=== PATIENT | female | born 1995 | race African-American/Black ===

== ENCOUNTER 2024-06-30 06:14 | Emergency (ER) | payer SELFPAY ==
--- NOTE | ~2024-06-30 | XR_ITS ---
EXAMINATION: XR chest 1V portable DATE: 06/30/2024 06:48 INDICATION: Chest pain. TECHNIQUE: A single frontal view of the chest was obtained. COMPARISON: Chest single view 12/13/2022 FINDINGS: There is no pneumonia, pleural effusion, or pneumothorax. The heart size is normal. IMPRESSION: 1. No acute cardiopulmonary disease. Reviewed, dictated and finalized at location A. PLIFIER MECHANIC
--- NOTE | 2024-06-30 06:15 | ECG_ITS ---
Test Date: 2024-06-30 06:23:18 Measurements Intervals [place] Rate: 70 P: 39 ME: 183 QRS: 59 QRSD: 89 T: 41 QT: 367 QTc: 397 Interpretive Statements SINUS RHYTHM SEPTAL MYOCARDIAL INFARCTION , PROBABLY OLD [40+ ms Q WAVE IN V1/V2] No previous ECG available for comparison Electronically Signed On 07-01-2024 14:51:06 HOG WORKER by Juan Gu M.D.
[2024-06-30 06:19] VITALS: BP 127/100; RESP 19; O2SAT 98
[2024-06-30 06:30] LABS: Basophils Absolute Auto 0.1 K/mm3 (0.0-0.1); Basophils Percent Auto 0.9 % (0.2-1.2); Eosinophils Absolute Auto 0.1 K/mm3 (0-0.3); Eosinophils Percent Auto 1.2 % (0-4.4); Hematocrit 32.2 % (37.0-47.0); Hemoglobin 9.7 g/dL (12.0-15.0); Immature Granulocyte Absolute 0.02 K/mm3 (0.00-0.031); Immature Granulocyte Percent A 0.3 % (0-0.5); Lymphocytes Absolute Auto 2.54 K/mm3 (0.9-3.2); Lymphocytes Percent Auto 36.5 % (18.3-44.2); Mean Corpuscular HGB Conc 30.1 g/dl (32-36); Mean Corpuscular Hemoglobin 22.1 pg (26-34); Mean Corpuscular Volume 73.3 fl (80-100); Mean Platelet Volume 9.1 fl (7.4-10.4); Monocytes Absolute Auto 0.7 K/mm3 (0.1-0.6); Monocytes Percent Auto 10.4 % (2.6-8.5); Neutrophils Absolute Auto 3.5 K/mm3 (1.3-6.7); Neutrophils Percent Auto 50.7 % (45.5-73.1); Platelet Count Result 226 k/mm3 (150-375); Red Blood Count 4.39 M/mm3 (4.2-5.4)
[2024-06-30 06:44] LABS: Alanine Aminotransferase 12 U/L (6-35); Albumin Level 4.2 g/dL (3.5-5.1); Alkaline Phosphatase 64 U/L (38-126); Anion Gap 5 mmol/L (4-12); Aspartate Amino Transferase 20 U/L (14-36); Bilirubin,Total 0.7 mg/dL (0.2-1.3); Blood Urea Nitrogen 8 mg/dL (7-17); Carbon Dioxide 27 mmol/L (22-30); Chloride 104 mmol/L (98-107); Estimated CRCL calculation 117 ml/min; Estimated Glomerular Filt Rate > 60; Glucose 95 mg/dL (65-110); Lipase 51 U/L (23-300); Potassium 3.5 mmol/L (3.4-5.0); Sodium 136 mmol/L (137-145)
[2024-06-30 06:48] VITALS: O2SAT 100
[2024-06-30 06:56] LABS: Troponin I < 0.012 ng/mL (0.000-0.034)
[2024-06-30 06:59] LABS: Anisocytosis 1+; Ovalocytes 1+; Platelet Estimate Adequate (Adequate); Schistocytes None Seen
[2024-06-30 07:17] VITALS: BP 132/89; PULSE 67; RESP 18; O2SAT 100
[2024-06-30 07:19] VITALS: O2SAT 100
[2024-06-30] MEDS: FAMOTIDINE 20 MG/2 ML VIAL IV PUSH (07:39)
[2024-06-30] MEDS: MAG HYDROX/AL HYDROX/SIMETH 30 ML UDC PO (07:39)
--- NOTE | 2024-06-30 07:47 | ED_ITS ---
HPI - Chest Pain General Chief Complaint: Chest Pain Stated Complaint: chest pain Time Seen by Provider: 06/30/24 07:03 History of Present Illness HPI narrative: 29-year-old female presenting to the emergency department for evaluation of epigastric chest discomfort she states feels similar to gas. 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 At approximately 3 in the morning she had a sensation of epigastric and midsternal chest discomfort. She described tightness in chest. Denies any difficulty breathing, fever, chills, nausea, vomiting, back pain, abdominal pain, GI or symptoms. Was otherwise in her normal state of health. Has not had anything like this happen or previously. She states it feels like it could be gas. Pain is slowly subsided but not completely gone during my initial assessment. No cardiac history, no history of hypertension or any cardiac medications. Denies any chance of . Was otherwise in her normal state of health. Denies any recent injuries, trauma, direct impact, fever, chills or any other sick symptoms. Related Data Allergies Allergy/AdvReac Type Severity Reaction Status Date / Time Penicillins Allergy Unknown Rash Verified 06/30/24 06:51 Review of Systems 2 Review of Systems: As reviewed above in HPI Exam 2 Narrative: GENERAL: [Well-appearing, well-nourished, and in no acute distress.] HEAD: [Normocephalic, atraumatic.] EYES: [PERRLA and EOMI.] ENT: Nares clear, no rhinorrhea or epistaxis. Mucous membranes moist. NECK: Supple. CHEST: [Clear to auscultation. No respiratory distress.] HEART: [Regular rate and rhythm]. No murmur heard. [Normal peripheral pulses.] ABDOMEN: [Soft, nondistended], [nontender], [No rigidity or guarding] EXTREMITIES: Normal range of motion. [No edema.] SKIN: Warm, dry, no rash. NEURO: [No focal deficits]. Alert and oriented [x3.] PSYCH: [Normal mood and affect.] Course Vital Signs Vital signs: Vital Signs Respiratory Rate 19 06/30/24 06:19 Blood Pressure 127/100 H 06/30/24 06:19 Pulse Oximetry 98 06/30/24 06:19 Oxygen Delivery Room Air 06/30/24 06:19 Pulse Rate 67 06/30/24 07:17 Respiratory Rate 18 06/30/24 07:17 Blood Pressure 132/89 06/30/24 07:17 Pulse Oximetry 100 06/30/24 07:19 Oxygen Delivery Room Air 06/30/24 07:19 MDM - Chest Pain MDM Narrative Medical decision making narrative: 29-year-old otherwise healthy and well-appearing female presenting to the emergency room for evaluation of epigastric and retrosternal chest discomfort and chest tightness. She has clear breath sounds throughout both lung yi, no reproducible tenderness with palpation, strong symmetric pulse a shins in both arms and legs, warm extremities. Vital signs are very reassuring without any blood pressure concerns, no tachycardia, fever, hypoxia. Patient has no cardiac risk factors and states that symptoms could feel similar to gas. She was treated conservatively with Pepcid and Maalox and had a cardiac workup here in the emergency department cleaning x-ray, troponin, EKG and electrolytes. No leukocytosis, anemia of 9.7 with no known baseline. Normal platelets. Electrolytes within normal limits, normal renal and hepatic function panel, normal glucose, negative lipase. Troponin is undetectable. I reviewed the chest x-ray and I do not see any pneumonia, pleural effusion or pneumothorax. Radiology read confirms no acute cardiopulmonary process. EKG is nonischemic in nature without any acute ST segment findings or changes. Patient had improvement with symptom control and was stable for discharge home at this time with return precautions and PCP follow-up. Differential Diagnosis Differential diagnosis: Likely pneumothorax, stable angina, atypical chest pain, st elevation myocardial infarction, costochondritis, chest pain, biliary colic and other Medical Records Data Attestation: I reviewed the patient's medical records. Lab Data Attestation: I reviewed the patient's lab results. 06/30/24 06:25 06/30/24 06:26 Labs: Lab Results 06/30/24 06/30/24 Range/Units 06:25 06:26 WBC 7.0 (4.5-10.0) K/mm3 RBC 4.39 (4.2-5.4) M/mm3 Hgb 9.7 L (12.0-15.0) g/dL Hct 32.2 L (37.0-47.0) % MCV 73.3 L (80-100) fl MCH 22.1 L (26-34) pg MCHC 30.1 L (32-36) g/dl RDW 16.0 H (11.5-14.5) % Plt Count 226 (150-375) k/mm3 MPV 9.1 (7.4-10.4) fl Immature Gran % (Auto) 0.3 (0-0.5) % Neut % (Auto) 50.7 (45.5-73.1) % Lymph % (Auto) 36.5 (18.3-44.2) % [place] % (Auto) 10.4 H (2.6-8.5) % Eos % (Auto) 1.2 (0-4.4) % Baso % (Auto) 0.9 (0.2-1.2) % Lymph # (Auto) 2.54 (0.9-3.2) K/mm3 [place] # (Auto) 0.7 H (0.1-0.6) K/mm3 Eos # (Auto) 0.1 (0-0.3) K/mm3 Baso # (Auto) 0.1 (0.0-0.1) K/mm3 Abs Immat Gran (auto) 0.02 (0.00-0.031) K/mm3 Absolute Neuts (auto) 3.5 (1.3-6.7) K/mm3 Absolute Nucleated RBC 0.000 (0.0-0.012) K/mm3 Nucleated RBC % 0.0 (0.0-0.2) % Platelet Estimate Adequate (Adequate) Anisocytosis 1+ Ovalocytes 1+ Schistocytes None seen PT Pending INR Pending APTT Pending Sodium 136 L (137-145) mmol/L Potassium 3.5 (3.4-5.0) mmol/L Chloride 104 (98-107) mmol/L Carbon Dioxide 27 (22-30) mmol/L Anion Gap 5 (4-12) mmol/L BUN 8 (7-17) mg/dL Creatinine 0.70 (0.7-1.0) mg/dL Estim Creat Clear Calc 117 ml/min Estimated GFR > 60 (59 - ) Glucose 95 (65-110) mg/dL Calcium 9.0 (8.4-10.2) mg/dL Total Bilirubin 0.7 (0.2-1.3) mg/dL AST 20 (14-36) U/L ALT 12 (6-35) U/L Alkaline Phosphatase 64 (38-126) U/L Troponin I < 0.012 (0.000-0.034) ng/mL Total Protein 7.0 (6.3-8.2) g/dL Albumin 4.2 (3.5-5.1) g/dL Lipase 51 (23-300) U/L Imaging Data Attestation: I personally reviewed and interpreted this imaging study as follows: My impression: I reviewed the chest x-ray and I do not see any pneumonia, pleural effusion or pneumothorax. Impressions Chest X-Ray 06/30/24 06:49 IMPRESSION: 1. No acute cardiopulmonary disease. ECG Data EKG #1: Attestation: I personally reviewed and interpreted this ECG as follows: ECG completion date: 06/30/24 ECG completion time: :23 Prior ECG tracings: not available for review Interpretation: No ST segment elevations, depressions or inversions. Good R-wave progression lateral precordial leads. No ectopy, regular rate rhythm an axis, QTC 397, QRS 89, TN interval 183 all within normal limits. No previous EKG for comparison. Overall normal sinus rhythm. Discharge Plan Discharge Clinical Impression: Atypical chest pain Patient Disposition: Home, Self-Care Condition: Stable Instructions: Antibiotic Form, Chest Pain (ED), Gastritis (DC) Additional Instructions: Your cardiac workup was reassuring. Follow-up with your regular doctor on outpatient basis. You can take Tylenol, ibuprofen or any other [id number] remedies for your symptoms. Could potentially be GI tract related such as gastritis or esophageal spasm. If you have any persistent symptoms or any new or worsening concerns please return to the ED otherwise follow-up with your regular doctor outpatient. Patient Language: Libyan Follow-up/Referrals: PHYSICIAN,SPONGE PRESS OPERATOR [Non-Staff] - Time of Disposition: 07:29 Quality HEART score for chest pain patients History: slightly suspicious ECG: normal Age: < or = to 45 years Risk factors: no risk factors known Troponin: < or = to 1x normal limit Heart score: 0
--- OUTSIDE RECORDS SUMMARY | 2024-07-07 08:51 | XMS_ITS | Encounter Summary ---
Author Organization [facility] Address [facility]. [place], [place] [id number] [place] [id number] Care Team Providers Care Freight Receiver Name Role Phone Unavailable Primary Care Provider Unavailabl e Encounter Details Date Type Department Care Team (Latest Contact Info) Description 12/22/2021 Travel Social History Tobacco Use Types Packs/Day Years Used Date Smoking Tobacco: Never Smokeless Tobacco: Never Alcohol Use Standard Drinks/Week Comments No 0 (1 standard drink = 0.6 oz pur e alcohol) Comments No Sex and Gender Information Value Date Recorded Sex Assigned at Not on file Legal Sex Female 5:47 PM CDT Gender Identity Not on file Sexual Orientation Not on file COVID-19 Exposure Response Date Recorded In the last 10 days, have yo u been in contact with someone who was confirmed or suspected to have Coronavirus/COVID-19? No / Unsure 12/22/2021 9:07 PM CDT documented as of this encounter Functional Status * RETIRED Are you deaf or do you have serious difficulty hearing Answer Date of Assessment Author Status No 03/12/2020 8:50 AM CDT Activ e * RETIRED Are you blind or do you have serious difficulty seeing, even when wearing glasses? Answer Date of Assessment Author Status No 03/12/2020 8:50 AM CDT Activ e * Do you have serious difficulty walking or climbing stairs? Answer Date of Assessment Author Status No 03/12/2020 8:50 AM CDT Mariah Gonzalez RN Active * Do you have difficulty dressing or bathing? Answer Date of Assessment Author Status No 03/12/2020 8:50 AM CDT Mariah Gonzalez RN Active * Because of a physical, mental, or emotional condition, do you have difficulty doing errands alone such as visiting a doctor's office or shopping? Answer Date of Assessment Author Status No 03/12/2020 8:50 AM Mariah Garrido RN Active documented as of this encounter Mental Status * Because of a physical, mental, or emotional condition, do you have serious difficulty concentrating, remembering, or making decisions? Answer Entry Date Author Status No 03/12/2020 8:50 AM Mariah Garrido RN Active documented in this encounter Plan of Treatment Not on file documented as of this encounter Visit Diagnoses Not on filedocumented in this encounter
--- OUTSIDE RECORDS SUMMARY | 2024-07-07 08:51 | XMS_ITS | Clinical Summary ---
Author Organization [facility] Address [facility] [place] [address] [place] [address] Care Team Providers Care Almond Sorter Name Role Phone Unavailable Primary Care Provider Unavailabl e Allergies Active Allergy Reactions Criticality Noted Date Comments Penicillins Swelling 02/27/2018 Medications oxyCODONE-aceta minophen (PERCOCET) 5-325 MG tabletIndicatio ns:Acute Pain < 7 Day Supply,surgery Take 1 tablet by mouth every 6 (six) hours as needed. Indications: Acute Pain < 7 Day Supply, surgery 20 tablet 0 Active ferrous sulfate EC 325 (65 Fe) MG tablet Take 1 tablet (325 mg total) by mouth 2 (two) times daily with meals. 1 tablet/day with 4 ounces of orange juice, if does not upset stomach or constipate take this twice/day 60 tablet 0 Active Family History Medical History Relation Comments Diabetes Mother Heart Disease Mother Relation Status Comments Brother Alive Daughter Alive Father Alive Maternal Grandfather Maternal Grandmother Alive Mother Alive Paternal Grandfather Alive Paternal Grandmother Sister Alive Son Alive Social History Tobacco Use Types Packs/Day Years Used Date Smoking Tobacco: Never Smokeless Tobacco: Never Alcohol Use Standard Drinks/Week Comments No 0 (1 standard drink = 0.6 oz pur e alcohol) Comments No Sex and Gender Information Value Date Recorded Sex Assigned at Not on file Legal Sex Female 5:47 PM CDT Gender Identity Not on file Sexual Orientation Not on file Last Filed Vital Signs Vital Sign Reading Time Taken Comments Blood Pressure 123/88 12/22/2021 9:53 PM CDT Pulse 75 12/22/2021 9:19 PM CDT Temperature 36.4 ??C (97.5 ??F) 12/22/2021 9:19 PM CD T Respiratory Rate 16 12/22/2021 9:19 PM CDT Oxygen Saturation 100% 12/22/2021 9:19 PM CDT Inhaled Oxygen Concentration - - Weight 92.4 kg (203 lb 11.3 oz) 12/22/2021 9:19 PM CDT Height 165.1 cm (5' 5 ) 12/22/2021 9:19 PM CDT Body Mass Index 33.9 12/22/2021 9:19 PM CDT Plan of Treatment Health Maintenance Due Date Last Done Comments Cervical Cancer Screening Pa p Smear (Age 21 to 29) Every 3 Years 1995 Cervical Cancer Screening 1995 Annual Physical 1998 Hepatitis C 2013 DTaP, Tdap and Td Vaccines ( 1 - Tdap) 2014 Hepatitis B Vaccines (1 of 3 - 19+ 3-dose series) 2014 COVID-19 Vaccine (2023-2 5 season) 2024 Influenza Adult (#1) 2024 HPV Vaccines Aged Out No longer eligi ble based on patient's age to complete this topic Meningococcal Vaccine Aged Out No audrey eduardo eligible based on patient's age to complete this topic Pneumococcal Vaccine: Pediat rics (0 to 5 Years) and At-Risk Patients (6 to 64 Years) Aged Out No longer eligible b ased on patient's age to complete this topic RSV Immunizations Under 20 Months Aged Out No longer eligible based on patient's age to complete this topic Insurance [facility] Advance Directives * Full Code (Latest Code Status on File) Date Activated Date Inactivated Comments 03/13/2020 7:17 AM 03/14/2020 11:11 PM
--- OUTSIDE RECORDS SUMMARY | 2024-07-07 08:52 | XMS_ITS | Encounter Summary ---
Author Organization [facility] Address [facility] [place] [address] [place] [address] Care Team Providers Care Rewinder Operator Helper Name Role Phone , Tin Mendieta MD Primary Care Provider Unavailable Encounter Details Date Type Department Care Team (Late st Contact Info) Description 05/15/2015 Abstract [facility] [place], [place] [id number] Rashi Rose MD [address] [place], [place] [id number] Social History Tobacco Use Types Packs/Day Years Used Date Smoking Tobacco: Never Assessed Comments Unknown Sex and Gender Information Value Date Recorded Sex Assigned at Not on file Legal Sex Female 5:47 PM CDT Gender Identity Not on file Sexual Orientation Not on file documented as of this encounter Plan of Treatment Not on file documented as of this encounter Procedures Procedure Name Priority Date/Time Associated Diagnosis Comments CBC W/DIFF AUTOMATED Routine 05/16/2015 5:44 AM ANIMATION DIRECTOR SYPHILIS IGG AB STAT 05/15/2015 5:30 AM ANIMATION DIRECTOR URINALYSIS WI REFLEX TO CULTURE STAT 05/15/2015 5:30 AM ANIMATION DIRECTOR TYPE AND CROSSMATCH STAT 05/15/2015 5 :30 AM ANIMATION DIRECTOR URINE BACTERIA CULTURE Routine 05/15/2015 5:30 AM ANIMATION DIRECTOR CBC W/DIFF AUTOMATED STAT 05/15/2015 5:30 AM ANIMATION DIRECTOR documented in this encounter Results * (ABNORMAL) CBC W/DIFF AUTOMATED (05/16/2015 5:44 AM ANIMATION DIRECTOR) [facility] WBC 12.7(H) 4.8 - 10.8 X10'3/uL 05/16/2015 5:54 AM [facility] RBC 3.08(L) 4.20 - 5.40 X10'6/uL 05/16/2015 5:54 AM [facility] HGB 9.3(L) 12.0 - 16.0 g/dL 05/16/2015 5:54 AM [facility] HCT 27.7(L) 38.0 - 48.0 % 05/16/2015 5:54 AM [facility] MCV 89.9 81.0 - 99.0 fL 05/16/2015 5:54 AM [facility] MCH 30.2 27.0 - 31.0 pg 05/16/2015 5:54 AM [facility] MCHC 33.6 32.0 - 36.0 g/dL 05/16/2015 5:54 AM [facility] RDW 12.6 11.5 - 14.5 % 05/16/2015 5:54 AM [facility] PLT 119(L) 130 - 400 X10'3/uL 05/16/2015 5:54 AM [facility] MPV 11.0 9.3 - 12.2 fL 05/16/2015 5:54 AM [facility] DIFFERENTIAL TYPE AUTOMATED 05/16/2015 5:55 AM [facility] NEUTROPHILS % 78.4(H) 43.0 - 65.0 % 05/16/2015 5:55 AM [facility] LYMPHOCYTES % 9.6(L) 20.0 - 46.0 % 05/16/2015 5:55 AM ANIMATION DIRECTOR [facility] MONOCYTES % 10.8 5.0 - 12.0 % 05/16/2015 5:55 AM [facility] EOSINOPHILS 0.5(L) 1.0 - 3.0 % 05/16/2015 5:55 AM ANIMATION DIRECTOR [facility] BASOPHILS 0.2 0.0 - 1.0 % 05/16/2015 5:55 AM ANIMATION DIRECTOR [facility] IMMATURE GRANS % 0.5 0.0 - 1.0 % 05/16/2015 5:55 AM [facility] 05/16/2015 5:44 AM ANIMATION DIRECTOR 05/16/2015 5:45 AM ANIMATION DIRECTOR us Generic Conversion Md [facility] LABORATORY Final R esult Performing Organization Address City/[facility]/ZIP Co de Phone Number [facility] [address] [place] [address], [place] [phone] * CULTURE URINE (05/15/2015 5:30 AM ANIMATION DIRECTOR) SPEC DESCRIPTION URINE CLEAN CATCH 05/15/2015 7:09 AM [facility] SPECIAL REQUESTS NO SPECIAL REQUEST 05/15/2015 7:09 AM [facility] CULTURE RESULT POLYMICROBIAL GROWTH CONSISTENT WITH NORMAL GENITAL GABRIEL. ?? SUSCEPTIBILITIES NOT ROUTINELY PERFORMED. 05/17/2015 7:57 AM [facility] URINE SPECIMEN OBTAINED BY CLEAN CATCH PROCEDURE / Unknown 05/15/2015 5:30 AM ANIMATION DIRECTOR 05/15/2015 7:08 AM ANIMATION DIRECTOR us Generic Conversion Md [facility] MICROBIOLOGY - GENERAL ORDERABLES Final Result Performing Organization Address City/[facility]/ZIP Co de Phone Number [facility] [address] [place] [address], [place] [phone] * Type and Crossmatch (05/15/2015 5:30 AM ANIMATION DIRECTOR) UNITS ORDERED 0 05/15/2015 5:59 AM [facility] ABO/RH O POSITIVE 05/15/2015 7:24 AM [facility] ANTIBODY SCREEN NEGATIVE 7:24 AM [facility] SAMPLE EXPIRATION 05/18/2015 05/15/2015 7:24 AM [facility] 05/15/2015 5:30 AM ANIMATION DIRECTOR 05/15/2015 5:57 AM ANIMATION DIRECTOR us Generic Conversion Md [facility] BLOOD BANK TEST ORDERAB LES Final Result [facility] [address] [place] [address], [place] [phone] * (ABNORMAL) URINALYSIS WI REFLEX TO CULTURE (05/15/2015 5:30 AM ANIMATION DIRECTOR) SOURCE (FLUID) URINE CLEAN CATCH 05/15/2015 5:16 AM [facility] COLOR (U) YELLOW 05/15/2015 6:41 AM [facility] TRANSPARENCY CLEAR 05/15/2015 6:41 AM [facility] SPECIFIC GRAVITY (U) 1.008 1.001 - 1.030 05/15/2015 6:41 AM [facility] U PH 6.0 5.0 - 9.0 05/15/2015 6:41 AM [facility] LEUKOCYTES (U) SMALL(A) NEGATIVE 05/15/2015 6:41 AM [facility] NITRITES NEGATIVE NEGATIVE 05/15/2015 6:41 AM [facility] PROTEIN (U) NEGATIVE <30 MG/DL 05/15/2015 6:41 AM [facility] URINE GLUCOSE NEGATIVE NEGATIVE MG/DL 05/15/2015 6:41 AM [facility] KETONES MG/DL (U) NEGATIVE NEGATIVE MG/DL 05/15/2015 6:41 AM [facility] UROBILINOGEN 4.0(A) NEGATIVE MG/DL 05/15/2015 6:41 AM [facility] BILIRUBIN (U) NEGATIVE NEGATIVE MG/DL 05/15/2015 6:41 AM [facility] BLOOD (U) NEGATIVE NEGATIVE 05/15/2015 6:41 AM [facility] CULTURE & SENSITIVITY INDICATED? SPECIMEN SETUP FOR CULTURE 05/15/2015 6:41 AM [facility] SQUAMOUS EPITHELIALS FEW /LPF 05/15/2015 6:41 AM [facility] MUCUS RARE /LPF 05/15/2015 6:41 AM [facility] WBC/HPF 3 <6 /HPF 05/15/2015 6:41 AM [facility] RBC/HPF 1 <6 /HPF 05/15/2015 6:41 AM [facility] SPERM (U) SPERMATOZOA PRESENT 05/15/2015 6:41 AM [facility] 05/15/2015 5:30 AM ANIMATION DIRECTOR 05/15/2015 5:59 AM ANIMATION DIRECTOR us Generic Conversion Md [facility] URINE ORDERABLES Final Result [facility] [address] [place] [address], * SYPHILIS IGG AB (05/15/2015 5:30 AM ANIMATION DIRECTOR) SYPHILIS IGG AB NON-REACTI VE NON-REACTI VE 05/18/2015 11:08 AM ANIMATION DIRECTOR [facility] Comment: TESTING PERFORMED AT [facility] [address] [place] [address] SERUM SPECIMEN / Unknown 05/15/2015 5:30 AM ANIMATION DIRECTOR 05/15/2015 6:01 AM ANIMATION DIRECTOR us Generic Conversion Md [facility] LABORATORY Final R esult [facility] [address] [place] [address], [place] [phone] * (ABNORMAL) CBC W/DIFF AUTOMATED (05/15/2015 5:30 AM ANIMATION DIRECTOR) WBC 10.3 4.8 - 10.8 X10'3/uL 05/15/2015 6:01 AM [facility] RBC 4.19(L) 4.20 - 5.40 X10'6/uL 05/15/2015 6:01 AM [facility] HGB 12.9 12.0 - 16.0 g/dL 05/15/2015 6:01 AM [facility] HCT 37.1(L) 38.0 - 48.0 % 05/15/2015 6:01 AM [facility] MCV 88.5 81.0 - 99.0 fL 05/15/2015 6:01 AM [facility] MCH 30.8 27.0 - 31.0 pg 05/15/2015 6:01 AM [facility] MCHC 34.8 32.0 - 36.0 g/dL 05/15/2015 6:01 AM [facility] RDW 12.4 11.5 - 14.5 % 05/15/2015 6:01 AM [facility] PLT 152 130 - 400 X10'3/uL 05/15/2015 6:01 AM [facility] MPV 11.7 9.3 - 12.2 fL 05/15/2015 6:01 AM [facility] DIFFERENTIAL TYPE AUTOMATED 05/15/2015 6:01 AM [facility] NEUTROPHILS % 66.3(H) 43.0 - 65.0 % 05/15/2015 6:01 AM [facility] LYMPHOCYTES % 20.4 20.0 - 46.0 % 05/15/2015 6:01 AM [facility] MONOCYTES % 10.7 5.0 - 12.0 % 05/15/2015 6:01 AM [facility] EOSINOPHILS 2.0 1.0 - 3.0 % 05/15/2015 6:01 AM [facility] BASOPHILS 0.3 0.0 - 1.0 % 05/15/2015 6:01 AM [facility] IMMATURE GRANS % 0.3 0.0 - 1.0 % 05/15/2015 6:01 AM [facility] 05/15/2015 5:30 AM ANIMATION DIRECTOR 05/15/2015 5:51 AM ANIMATION DIRECTOR us Generic Anam Dahl MD LABORATORY Final R esult [facility] [address] [place] [address], documented in this encounter Visit Diagnoses Diagnosis Maternal care for excessive growth in third trimester (HHS/HCC) Excessive growth affecting management of mother, antepartum documented in this encounter Care Teams Rewinder Operator Helper Relationship Specialty Start Date End Date Tin Dahl MD PCP - General 05/15/15 documented as of this encounter
--- OUTSIDE RECORDS SUMMARY | 2024-07-07 08:52 | XMS_ITS | Encounter Summary ---
Author Organization [facility] Address [facility]6 [facility]. [place], [place] [id number] [place] [id number] Care Team Providers Care Procurement Analyst Name Role Phone None, Provider Primary Care Provider Clyde ardon Encounter Details Date Type Department Care Team (Latest Contact Info) Description 03/12/2020 Travel Social History Tobacco Use Types Packs/Day [...] Exposure Response Date Recorded In the last month, have you been in contact with someone who was confirmed or suspected to have Coronavirus / COVID-19? No / Unsure 03/12/2020 8:25 AM CDT documented as of this encounter Functional Status * Question Answer Date of Assessment Author Status Do you have serious difficulty walking or climbing stairs? No 03/12/2020 8:50 AM CDT Mariah Gonzalez RN Ac tive * Question Answer Date of Assessment Author Status Do you have difficulty dressing or bathing? No 03/12/2020 8:50 AM CDT Mariah Gonzalez R N Active Because of a physical, mental, or emotional condition, do you have difficulty doing errands alone such as visiting a doctor's office or shopping? No 03/12/2020 8:50 AM CDT Mariah Gonzalez RN Ac tive * RETIRED Are you deaf or do you have serious difficulty hearing Answer Date of Assessment Author Status No 03/12/2020 8:50 AM CDT Activ e * RETIRED Are you blind or do you have serious difficulty seeing, even when wearing glasses? Answer Date of Assessment Author Status No 03/12/2020 8:50 AM ELMOT Activ e * Do you have serious difficulty walking or climbing stairs? Answer Date of Assessment Author Status No 03/12/2020 8:50 AM Mariah Garrido RN Active * Do you have difficulty dressing or bathing? Answer Date of Assessment Author Status No 03/12/2020 8:50 AM Mariah Garrido RN Active * Because of a physical, mental, or emotional condition, do you have difficulty doing errands alone such as visiting a doctor's office or shopping? Answer Date of Assessment Author Status No 03/12/2020 8:50 AM Mariah Garriod RN Active documented as of this encounter Mental Status * Question Answer Entry Date Author Status Because of a physical, mental, or emotional condition, do you have serious difficulty concentrating, remembering, or making decisions? No 03/12/2020 8:50 AM Mariah Garrido R N Active * Because of a physical, mental, or emotional condition, do you have serious difficulty concentrating, remembering, or making decisions? Answer Entry Date Author Status No 03/12/2020 8:50 AM Mariah Garrido RN Active documented in this encounter Plan of Treatment Not on file documented as of this encounter Visit Diagnoses Not on filedocumented in this encounter Care Teams Procurement Analyst Relationship Specialty Start Date End Date None, Provider, PCP - General 07/16/18 03/13/20 documented as of this encounter
--- OUTSIDE RECORDS SUMMARY | 2024-07-07 08:52 | XMS_ITS | Encounter Summary ---
Author Organization [facility] Address [facility]6 [facility] [place] [address] [place] [address] Care Team Providers Care Supervisor Sample Name Role Phone None, Provider Primary Care Provider Clyde ardon Encounter Details Date Type Department Care Team (Late st Contact Info) Description 03/11/2020 Orders Only [facility] [address] [place], [place] [id number] Elaine Rader MD [address] [place], [place] [id number] Social History Tobacco Use Types Packs/Day Years [...] documented as of this encounter Visit Diagnoses Diagnosis Preop testing- Primary Preoperative examination, unspecified documented in this encounter Care Teams Supervisor Sample Relationship Specialty Start Date End Date None, ProviderMD PCP - General 07/16/18 03/13/20 documented as of this encounter
--- OUTSIDE RECORDS SUMMARY | 2024-07-07 08:52 | XMS_ITS | Encounter Summary ---
Author Organization [facility] Address [facility]6 [facility] [place], [place] [id number] [place] [address] Care Team Providers Care Plasterer Helper Name Role Phone None, Provider Primary Care Provider Unavaila ble Reason for Visit * Reason Comments (Fatigue) FEELING WEAK Encounter Details Date Type Department Care Team (Latest Contact Info) Description 07/16/2018 5:35 PM DIRECTOR SHIP - 07/16/2018 7:52 PM DIRECTOR SHIP Hospital Encounter [facility] Labor & [place] [address] Cj Leggett MD [address] [place] [address] (Fatigue) (FEELING WEAK) Discharge Disposition: Home or Self Care (Routine Discharge) Social History Tobacco Use Types Packs/Day Years Used Date Smoking Tobacco: Never Smokeless Tobacco: Never Alcohol Use Standard Drinks/Week Comments No 0 (1 standard drink = 0.6 oz pur e alcohol) Comments Yes Sex and Gender Information Value Date Recorded Sex Assigned at Not on file Legal Sex Female 5:47 PM CDT Gender Identity Not on file Sexual Orientation Not on file documented as of this encounter Last Filed Vital Signs Vital Sign Reading Time Taken Comments Blood Pressure 127/80 07/16/2018 6:35 PM DIRECTOR SHIP Pulse 95 07/16/2018 7:18 PM DIRECTOR SHIP Temperature - - Respiratory Rate - - Oxygen Saturation - - Inhaled Oxygen Concentration - - Weight 95.3 kg (210 lb) 07/16/2018 7:34 PM DIRECTOR SHIP Height 165.1 cm (5' 5 ) 07/16/2018 7:34 PM DIRECTOR SHIP Body Mass Index 34.95 07/16/2018 7:34 PM DIRECTOR SHIP documented in this encounter Plan of Treatment Not on file documented as of this encounter Procedures Procedure Name Priority Date/Time Associated Diagnosis Comments COMPREHENSIVE METABOLIC PANEL STAT 07/16/2018 7:06 PM DIRECTOR SHIP Weakness DRUG SCREEN RAPID Routine 07/16/2018 6:4 5 PM DIRECTOR SHIP Weakness URINALYSIS Routine 07/16/2018 6:45 PM DIRECTOR SHIP Weakness CBC W/DIFF AUTOMATED STAT 07/16/2018 6:45 PM DIRECTOR SHIP Weakness documented in this encounter Results * (ABNORMAL) COMPREHENSIVE METABOLIC PANEL (07/16/2018 7:06 PM DIRECTOR SHIP) GLUCOSE 85 70 - 99 MG/DL 07/16/2018 7:30 PM [facility] BUN 4(L) 7 - 18 MG/DL 07/16/2018 7:30 PM [facility] CREATININE S/P/B 0.50(L) 0.55 - 1.02 MG/DL 07/16/2018 7:30 PM [facility] SODIUM S/P/B 139 136 - 145 MMOL/L 07/16/2018 7:30 PM [facility] POTASSIUM S/P/B 3.7 3.5 - 5.1 MMOL/L 07/16/2018 7:30 PM [facility] CHLORIDE S/P/B 108 100 - 108 MMOL/L 07/16/2018 7:30 PM [facility] CO2 25.0 21 - 32 MMOL/L 07/16/2018 7:30 PM [facility] CALCIUM S/P/B 8.3(L) 8.5 - 10.1 MG/DL 07/16/2018 7:30 PM [facility] BILIRUBIN TOTAL S/P/B 0.7 0.2 - 1.2 MG/DL 07/16/2018 7:30 PM [facility] TOTAL PROTEIN S/P/B 6.5 6.4 - 8.2 G/DL 07/16/2018 7:30 PM [facility] ALBUMIN S/P/B 2.9(L) 3.4 - 5.0 G/DL 07/16/2018 7:30 PM [facility] AST 10(L) 15 - 37 U/L 07/16/2018 7:30 PM [facility] ALT 12(L) 14 - 55 U/L 07/16/2018 7:30 PM [facility] ALKALINE PHOSPHATASE S/P/B 106 50 - 136 U/L 07/16/2018 7:30 PM [facility] ANION GAP 9.7 8 - 20 MMOL/L 07/16/2018 7:30 PM [facility] BUN CREATININE RATIO 7.9 6 - 26 07/16/2018 7:30 PM [facility] A/G RATIO 0.8(L) 1.0 - 2.0 RATIO 07/16/2018 7:30 PM [facility] EGFR NON-AFR. AMER. >90 >90 ML/MIN/1.7 3 M2 07/16/2018 7:30 PM [facility] EGFR AFR. AMER. >90 >90 ML/MIN/1.7 3 M2 07/16/2018 7:30 PM [facility] Comment: NOTE: eGFR is not calculated for patients <18 years of age. This is an estimated GFR (CKD EPI) and should not be used for calculating drug doses. 07/16/2018 7:06 PM DIRECTOR SHIP us Jayna [facility] LABORATORY Final Res ult [facility] [address] [place] [address], [place] [phone] * (ABNORMAL) CBC W/DIFF AUTOMATED (07/16/2018 6:45 PM DIRECTOR SHIP) WBC 11.6(H) 4.5 - 11.0 x10'3/uL 07/16/2018 7:03 PM [facility] RBC 3.92(L) 4.20 - 5.40 x10'6/uL 07/16/2018 7:03 PM [facility] HGB 11.0(L) 12.0 - 16.0 G/DL 07/16/2018 7:03 PM [facility] HCT 33.3(L) 38.0 - 48.0 % 07/16/2018 7:03 PM [facility] MCV 84.9 81.0 - 99.0 FL 07/16/2018 7:03 PM [facility] MCH 28.1 27.0 - 31.0 PG 07/16/2018 7:03 PM [facility] MCHC 33.0 32.0 - 36.0 G/DL 07/16/2018 7:03 PM [facility] RDW 13.1 11.5 - 14.5 % 07/16/2018 7:03 PM [facility] PLT 204 130 - 400 x10'3/uL 07/16/2018 7:03 PM [facility] MPV 10.4 9.3 - 12.2 FL 07/16/2018 7:03 PM [facility] DIFFERENTIAL TYPE AUTOMATED DIFFERENTIAL 07/16/2018 7:03 PM [facility] NEUTROPHILS % 74.2 % 07/16/2018 7:03 PM [facility] LYMPHOCYTES % 14.0 % 07/16/2018 7:03 PM DIRECTOR SHIP [facility] MONOCYTES % 8.5 % 07/16/2018 7:03 PM [facility] EOSINOPHILS 2.2 % 07/16/2018 7:03 PM [facility] BASOPHILS 0.2 % 07/16/2018 7:03 PM [facility] IMMATURE GRANS % 0.9(H) 0 % 07/16/19 19 7:03 PM DIRECTOR SHIP [facility] ABS. NEUTROPHILS TOTAL 8.62(H) 1.80 - 7.70 x10'3/uL 07/16/2018 7:03 PM [facility] ABS. LYMPHOCYTES 1.62 1.00 - 4.80 x10'3/uL 07/16/2018 7:03 PM [facility] ABS. MONOCYTES 0.98(H) 0.24 - 0.86 x10'3/uL 07/16/2018 7:03 PM DIRECTOR SHIP [facility] ABS. EOSINOPHILS 0.25 0.04 - 0.36 x10'3/uL 07/16/2018 7:03 PM [facility] ABS. BASOPHILS 0.02 0.01 - 0.08 x10'3/uL 07/16/2018 7:03 PM [facility] ABS. IMMATURE GRANULOCYTES 0.10(H) 0.00 - 0.03 x10'3/uL 07/16/2018 7:03 PM [facility] 07/16/2018 6:45 PM DIRECTOR SHIP us Jayna HI LABORATORY Final Res ult [facility] [address] [place] [address], * URINALYSIS (07/16/2018 6:45 PM DIRECTOR SHIP) SPECIMEN TYPE URINE CLEAN CATCH 07/16/2018 6:50 PM [facility] COLOR (U) STRAW 07/16/2018 7:03 PM [facility] TRANSPARENCY CLEAR 07/16/2018 7:03 PM [facility] SPECIFIC GRAVITY (U) 1.003 1.001 - 1.030 07/16/2018 7:03 PM [facility] U PH 7.0 5.0 - 9.0 07/16/2018 7:03 PM [facility] LEUKOCYTES (U) NEGATIVE NEGATIVE 07/16/2018 7:03 PM [facility] NITRITES NEGATIVE NEGATIVE 07/16/2018 7:03 PM [facility] PROTEIN (U) NEGATIVE <30 MG/DL 07/16/2018 7:03 PM [facility] URINE GLUCOSE NEGATIVE NEGATIVE MG/DL 07/16/2018 7:03 PM [facility] KETONES MG/DL (U) NEGATIVE NEGATIVE MG/DL 07/16/2018 7:03 PM [facility] UROBILINOGEN NEGATIVE NEGATIVE MG/DL 07/16/2018 7:03 PM [facility] BILIRUBIN (U) NEGATIVE NEGATIVE MG/DL 07/16/2018 7:03 PM [facility] BLOOD (U) NEGATIVE NEGATIVE 07/16/2018 7:03 PM [facility] URINE SPECIMEN OBTAINED BY CLEAN CATCH PROCEDURE / Unknown 07/16/2018 6:45 PM DIRECTOR SHIP us Jayna Pedro CNM URINE ORDERABLES Final Re sult [facility] [address] [place] [address], * (ABNORMAL) DRUG SCREEN RAPID (07/16/2018 6:45 PM DIRECTOR SHIP) AMPHETAMINE (U) NEGATIVE NEGATIVE 9 7:10 PM DIRECTOR SHIP [facility] BARBITURATES SCREEN (U) NEGATIVE NEGATIVE 07/16/2018 7:10 PM [facility] BENZODIAZEPINES SCREEN (U) NEGATIVE NEGATIVE 07/16/2018 7:10 PM [facility] CANNABINOIDS SCREEN (U) NEGATIVE NEGATIVE 07/16/2018 7:10 PM [facility] COCAINE METABOLITES (U) NEGATIVE NEGATIVE 07/16/2018 7:10 PM [facility] METHADONE (U) NEGATIVE NEGATIVE 07/16/2018 7:10 PM [facility] OPIATE SCREEN (U) NEGATIVE NEGATIVE 019 7:10 PM [facility] PHENCYCLIDINE PCP (U) NEGATIVE NEGATIVE 07/16/2018 7:10 PM [facility] Comment: NOTE: RESULTS OF THIS DRUG SCREEN SHOULD BE USED FOR MEDICAL PURPOSES ONLY AND NOT FOR LEGAL OR EMPLOYMENT PURPOSES. POSITIVE RESULTS ARE NOT CONFIRMED. MEDICATIONS CONTAINING EPHEDRINE MAY CAUSE FALSE POSITIVE AMPHETAMINE CALL [phone], LAB, TO REQUEST CONFIRMATION TESTING. IF CREATININE IS <40 mg/dL. ??RECOLLECTION IS SUGGESTED. AMPHETAMINE- ?500 NG/ML BARBITURATE- ?200 NG/ML BENZODIAZEPINES- ??200 NG/ML THC- ? 50 NG/ML COCAINE- ?150 NG/ML METHADONE- ?300 NG/ML OPIATE- ? 300 MG/ML PCP- ? 25 NG/ML CREATININE (U) 18.8(L) 28 - 217 MG/DL 07/16/2018 7:10 PM DIRECTOR SHIP [facility] Urine specimen (specimen) URINE SPECIMEN / Unknown 07/16/2018 6:45 PM DIRECTOR SHIP Jayna Pedro SUSSY URINE ORDERABLES Final Re sult [facility] [address] [place] [address], [place] [phone] documented in this encounter Visit Diagnoses Diagnosis Weakness- Primary Other malaise and fatigue documented in this encounter Administered Medications Inactive Administered Medications - up to 3 most recent administrations Medication Order MAR Action Action Date Dose Rate Site acetaminophen (TYLENOL) tablet 1,000 mg 1,000 mg, Oral, Every 6 hours PRN, Mild pain (Scale 1 - 3), Starting on Sun07/16/18 at 1837, Until Sun07/16/18 at 2151, Maximum dose of acetaminophen is 4000 mg from all sources in 24 hours.Indications:Weakness aneirbfeb-voivceha-jcihnswrklf (MAALOX, MYLANT[place] EXTRA STRENGTH) [id number] mg/30mL suspension 10 mL, Oral, Every 4 hours PRN, Heartburn, dyspepsia, Starting on Sun07/16/18 at 1837, Until Sun07/16/18 at 2152, Shake WellIndications:Weakness ondansetron (ZOFRAN) injection 4 mg 4 mg, Intravenous, Every 6 hours PRN, Nausea, Vomiting, 2 doses, Starting on Sun07/16/18 at 1837, Until Sun07/16/18 at 2152Indications:Weakness ondansetron (ZOFRAN-ODT) disintegrating tablet 8 mg 8 mg, Oral, Every 8 hours PRN, Nausea, Vomiting, Starting on Sun07/16/18 at 1837, Until Sun07/16/18 at 2152Indications:Weakness documented in this encounter Active and Recently Administered Medications Times are shown in DIRECTOR SHIP. PRN Medication Order 07/14/2018 07/15/2018 07/16/2018 acetaminophen (TYLENOL) tablet 1,000 mg 1,000 mg, Oral, Every 6 hours PRN, Mild pain (Scale 1 - 3), Starting on Sun07/16/18 at 183, Until Sun07/16/18 at 2151, Maximum dose of acetaminophen is 4000 mg from all sources in 24 hours. mbnptaqsp-bzcdsije-ujchwekaepi (MAALOX, [place] EXTRA STRENGTH) [id number] mg/30mL suspension 10 mL, Oral, Every 4 hours PRN, Heartburn, dyspepsia, Starting on Sun07/16/18 at 183, Until Sun07/16/18 at 2151, Shake Well ondansetron (ZOFRAN) injection 4 mg 4 mg, Intravenous, Every 6 hours PRN, Nausea, Vomiting, 2 doses, Starting on Sun07/16/18 at 183, Until Sun07/16/18 at 2151 ondansetron (ZOFRAN-ODT) disintegrating tablet 8 mg 8 mg, Oral, Every 8 hours PRN, Nausea, Vomiting, Starting on Sun07/16/18 at 183, Until Sun07/16/18 at 2151 documented in this encounter Care Teams Plasterer Helper Relationship Specialty Start Date End Date None, Provider, PCP - General 07/16/18 03/13/20 documented as of this encounter
--- OUTSIDE RECORDS SUMMARY | 2024-07-07 08:52 | XMS_ITS | Encounter Summary ---
Author Organization [facility] Address [facility] [place] [address] [place] [address] Care Team Providers Care Editor At Large Name Role Phone None, Provider Primary Care Provider Unavaila ble Reason for Visit * Auth/Cert Specialty Diagnoses / Procedures Referred By Bebeto t Referred To Contact Diagnoses N/A Procedures INPT Referral ID Status Reason Start Date Expiration Date Visits Re quested Visits Authorized [id number] 1 1 Encounter Details Date Type Department Care Team (Late st Contact Info) Description 03/12/2020 1:47 PM CDT Anesthesia Event [facility] Labor [place] [address] Colby Vang MD [address] [place] [address] [phone] (Work) Teena Desai CRNA [address] [place] [address] Anesthesia Record Procedure Summary Procedure Name Responsible Anesthesiologist Anesthesia Start Time Anesthesia Stop Time REPEAT SECTION (Abdomen) Colby Vang MD 03/12/20 1347 03/12/20 1513 Events Date Time Event Comment 03/12/2020 1328 1328 AN Anesthesia Prepped 1341 An Start Data 1346 An Block 1347 An Start Patient ID and consent checked and patient reassessed. 1347 Anesthesia Ready 1347 Nasal Cannula Applied 1357 Quick Note Surgical incisi on after timeout 1402 Uterine Incision 1403 Baby Delivered 1405 AN Placenta 1501 Anes Handoff 1503 Nasal Cannula Removed 1511 Quick Note Transported to pacu. Vss. 1512 Post Anesthetic Care Handoff I completed my handoff to the receiving nurse during which we: 1. Identified the patient 2. Identified the responsible provider 3. Reviewed the pertinent medical history 4. Discussed the surgical course 5. Reviewed intra-op anesthesia management and issues during anesthesia 6. Set expectations for post-procedure period 7. Allowed opportunity for questions and acknowledgement of understanding. 1513 an stop data 1513 An Stop Meds Name Total fentaNYL (SUBLIMAZE) 100 mcg/2 mL inject ion 15 mcg morphine (PF) (ASTRAMORPH) 1 mg/mL injec tion 0.15 mg BUpivacaine 0.75%-dextrose 8.25% intrath ecal injection 1.6 mL phenylephrine (JENNIFER-SYNEPHRINE) 1 mg/10 m L IV premix syringe 500 mcg phenylephrine (JENNIFER-SYNEPHRINE) injection 200 mcg oxytocin (PITOCIN) 30 units in NS 500 mL infusion 500 mL clindamycin (CLEOCIN) 900 mg in sodium c hloride 0.9 % 50 mL IVPB 900 mg ondansetron (ZOFRAN) injection 4 mg 4 mg dexamethasone (DECADRON) 4 mg/mL injecti on 8 mg lactated ringers infusion 1,700 mL * Agents Name O2 N2O Air Ancillary O2 * Blood No blood administrations on file. Lines, Drains, and Airways Type Details Placement Removal Peripheral IV Placement Date: 10/26; Placement Time: 904; Placed Outside of This Facility?: No; Size: 20 G; Orientation: Right; Location: Hand; Site Prep: Alcohol; Local Anesthetic: None; Inserted By: Cathleen Tomas x2 Jarret Gonzalez x1; Insertion attempts: 3; Ultrasound-guided Placement?: No; Patient Tolerance: Tolerated well; Removal Date: 03/14/20; Removal Time: 1957; Removal Reason: Patient Discharged 03/12/20904 by Mariah Gonzalez RN 03/14/201957 by Cindy Fuchs RN Echevarria Catheter 03/12/20; 1349; No; Urologic Surgical intervention - Bladder, Prostate, TALENT DEVELOPMENT MANAGER procedures; 1; Hand hygiene performed, Site cleansed with sterile antiseptic, Sterile gloves, drape and lubricant used, Catheter inserted using aseptic technique, Echevarria care post catheter insertion, Anchoring device applied, Drainage bag secured below level of bladder, Closed system maintained; Stat lock; Latex; 14 Fr.; Per Patient / Family Request 03/12/20 1349 by Mariah Gonzalez RN 03/13/20 0245 by Reena Crane RN documented in this encounter Social History Tobacco Use Types Packs/Day Years [...] or climbing stairs? No 03/12/2020 8:50 AM ELMOT Mariah Gonzalez RN Ac tive * Question Answer Date of Assessment Author Status Do you have difficulty dressing or bathing? No 03/12/2020 8:50 AM ELMOT Mariah Gonzalez R N Active Because of a physical, mental, or emotional condition, do you have difficulty doing errands alone such as visiting a doctor's office or shopping? No 03/12/2020 8:50 AM Mariah Garrido RN Act jami * RETIRED Are you deaf or do [...] 8:50 AM CDT Mariah Gonzalez RN Active documented as of this encounter Mental Status * Question Answer Entry Date Author Status Because of a physical, mental, or emotional condition, do you have serious difficulty concentrating, remembering, or making decisions? No 03/12/2020 8:50 AM CDT Mariah Gonzalez R N Active * Because of a physical, mental, or emotional condition, do you have serious difficulty concentrating, remembering, or making decisions? Answer Entry Date Author Status No 03/12/2020 8:50 AM ELMOT Mariah Gonzalez RN Active documented in this encounter OR Notes * Anesthesia Postprocedure Evaluation - Walter Wise CRNA - 03/13/2020 11:48 AM CDT Anesthesia Post-op Note Teriona Wilson Procedure(s): REPEAT SECTION (N/A Abdomen) Anesthesia type: spinal Vitals: 03/12/20 1900 BP: 133/73 Vitals: 03/12/20 1610 Pulse: 86 Vitals: 03/12/20 1610 Resp: 16 Vitals: 03/13/20 0000 Temp: 36.9 ??C Vitals: 03/12/20 1900 SpO2: 99% Patient Location: Labor & Delivery Level of Consciousness: awake, alert and oriented Pain Management: adequate analgesia Airway Patency: patent Respiratory Status: acceptable Cardiovascular Status: acceptable and stable Post-Op Nausea: none Postoperative Hydration: euvolemic Complications: no anesthesia complication Comments: Blood pressure 133/73, pulse 86, temperature 36.9 ??C, temperature source Oral, resp. rate 16, height 5' 5 (1.651 m), weight 99.8 kg (220 lb), SpO2 99 %, unknown if currently . * Anesthesia Postprocedure Evaluation - Colby Vang MD - 03/13/2020 7:13 AM CDT Anesthesia Post-op Note Teriona Wilson Procedure(s): REPEAT SECTION (N/A Abdomen) Anesthesia type: spinal Vitals: 03/12/20 1900 BP: 133/73 Vitals: 03/12/20 1610 Pulse: 86 Vitals: 03/12/20 1610 Resp: 16 Vitals: 03/13/20 0000 Temp: 36.9 ??C Vitals: 03/12/20 1900 SpO2: 99% Patient Location: Labor & Delivery Level of Consciousness: awake, alert and oriented Pain Management: adequate analgesia Airway Patency: patent Respiratory Status: spontaneous ventilation, nonlabored ventilation, unassisted and acceptable Cardiovascular Status: hemodynamically stable Post-Op Nausea: none Postoperative Hydration: euvolemic Complications: no anesthesia complication * Anesthesia Procedure Notes - Teena Desai CRNA - 03/12/2020 7:22 PM CDT Associated Order(s): Spinal Block Spinal Block Date/Time: 03/12/2020 1:46 PM Patient location during procedure: OB Reason for block: procedure for pain, at surgeon's request, post-op pain management and primary anesthetic Staffing Anesthesiology Provider: Teena Desai CRNA Performed by: DAYANNA Preanesthetic Checklist Completed: patient identified, surgical consent, pre-op evaluation, timeout performed, IV checked, risks and benefits discussed and monitors and equipment checked Spinal Block Patient position: sitting Prep: patient draped and chlorhexidine Patient monitoring: continuous pulse oximetry and blood pressure Approach: midline Ultrasound-guided Placement: No Location: L3-4 L3-4 Attempts: 1 Needle Needle type: Pencil tip Needle gauge: 25 G Needle length: 3.5 in Needle attempts: 1 Assessment Sensory level: T4 Events: negative paresthesia, negative aspiration, positive free flow CSF and patient tolerated well Additional Notes FATMATA on completion. * Anesthesia Preprocedure Evaluation - Colby Vang MD - 03/12/2020 1:23 PM CDT Anesthesia ROS/MED History Reviewed: Patient summary , Nursing notes , Family history anesthesia, Anesthesia history , Medications , Labs , Images/Studies , Unchecked boxes are not applicable Pre-Anesthetic State: alert, awake and responds appropriately Pulmonary neg pulmonary ROS Cardiovascular neg cardio ROS Neuro/Psych neg neuro/psych ROS GI/Hepatic/Renal (+) GERD (no meds, does not like to take medications), (poorly controlled) Endo/Other (+) obese, (Morbid), blood dyscrasia, (Anemia) GENERAL COMMENTS -- Penicillins -- Swelling No past medical history on file. Past Surgical History: No date: SECTION Comment: X2 Physical Evaluation Airway Mallampati: II TM Distance: >3 FB Neck ROM: normal Dental (braces) Pulmonary Pulmonary exam normal Breath sounds clear to auscultation Cardiovascular Rhythm: regular Rate: normal Cardiovascular exam normal Other findings: Blood pressure 125/81, pulse 104, temperature 36.9 ??C, resp. rate 18, SpO2 100 %, unknown if currently . 03/12/20 0857 WBC 9.6 RBC 4.53 HGB 9.2* HCT 31.6* PLT 165 Anesthesia Plan ASA 2 Induction Anesthesia type: spinal Risks and benefits discussed with patient. Patient verbalized an understanding of the information presented and wishes to proceed. Questions answered. Patient consented. Informed Consent Anesthetic plan and risks discussed with patient of whom consent was obtained. Use of blood products discussed with patient of whom consent was obtained. . documented in this encounter Plan of Treatment Not on file documented as of this encounter Procedures Procedure Name Priority Date/Time Associated Diagnosis Comments AN SPINAL Routine 03/12/2020 7:22 PM CDT documented in this encounter Results * AN SPINAL (03/12/2020 7:22 PM CDT) Narrative Teena Desai CRNA - 03/12/2020 7:22 PM CDT Teena Desai CRNA ? 03/12/2020 ??7:22 PM Spinal Block Date/Time: 03/12/2020 1:46 PM Patient location during procedure: OB Reason for block: procedure for pain, at surgeon's request, post-op pain management and primary anesthetic Staffing Anesthesiology Provider: Teena Desai CRNA Performed by: DAYANNA Preanesthetic Checklist Completed: patient identified, surgical consent, pre-op evaluation, timeout performed, IV checked, risks and benefits discussed and monitors and equipment checked Spinal Block Patient position: sitting Prep: patient draped and chlorhexidine Patient monitoring: continuous pulse oximetry and blood pressure Approach: midline Ultrasound-guided Placement: ??No Location: L3-4 L3-4 Attempts: 1 Needle Needle type: Pencil tip Needle gauge: 25 G Needle length: 3.5 in Needle attempts: 1 Assessment Sensory level: T4 Events: negative paresthesia, negative aspiration, positive free flow CSF and patient tolerated well Additional Notes FATMATA on completion. us Colby Vang MD [place] ANESTHESIA Final Result documented in this encounter Visit Diagnoses Not on filedocumented in this encounter Administered Medications Inactive Administered Medications - up to 3 most recent administrations Medication Order MAR Action Action Date Dose Rate Site BUpivacaine 0.75% in dextrose 8.25% (intrathecal) (SENSORCAINE) 0.75-8.25 % injection Intrathecal, PRN, Starting on Sun03/12/20 at 1346, Until Sun03/12/20 at 1513, Anesthesia Intra-Op Given 03/12/2020 1:46 PM CDT 1.6 mLs clindamycin (CLEOCIN) 900 mg in sodium chloride 0.9 % 50 mL IVPB 900 mg, Intravenous, at 100 mL/hr, Once, 1 dose, On Sun03/12/20 at 1415 New Bag 03/12/2020 1:57 PM CDT 900 mg dexamethasone (DECADRON) injection PRN, Starting on Sun03/12/20 at 1426, Until Sun03/12/20 at 1513, Anesthesia Intra-Op Given 03/12/2020 2:26 PM CDT 8 mg fentaNYL (SUBLIMAZE) injection Intrathecal, PRN, Starting on Sun03/12/20 at 1346, Until Sun03/12/20 at 1513, Anesthesia Intra-Op Given 03/12/2020 1:46 PM CDT 15 mcg lactated ringers infusion at 150 mL/hr, Intravenous, Continuous, Starting on Sun03/12/20 at 1530, Until Sun03/13/20 at 1840, Pre-Op New Bag 03/12/2020 9:27 PM CDT 150 mL/h r New Bag 03/12/2020 1:41 PM CDT morphine (PF) (ASTRAMORPH) injection PRN, Starting on Sun03/12/20 at 1346, Until Sun03/12/20 at 1513, Anesthesia Intra-Op Given 03/12/2020 1:46 PM CDT 0.15 mg ondansetron (ZOFRAN) injection 4 mg 4 mg, Intravenous, Every 8 hours PRN, Nausea, Vomiting, Starting on Sun03/12/20 at 0844, Until 03/13/20 at 0717, IV push over 2-5 minutes.Indications: ([facility]HS/[facility]) Given 03/12/2020 2:22 PM CDT 4 mg oxytocin (PITOCIN) 30 units in NS 500 mL infusion 0-300 mL/hr, Intravenous, Continuous, Starting on Sun03/12/20 at 1415, Until 03/13/20 at 1840, Initial rate at 300 ml/hr for the 1st hour, then decrease to 60 mL/hr for the 2nd hour. Continue this rate until the fundus is firm or the patient has completed her recovery phase. HAZARDOUS MEDICATION, Pre-Op New Bag 03/12/2020 2:04 PM CDT 750 mL/hr 75 0 mL/hr phenylephrine (JENNIFER-SYNEPHRINE) injection PRN, Starting on Sun03/12/20 at 1354, Until Sun03/12/20 at 1513, Anesthesia Intra-Op Given 03/12/2020 2:01 PM CDT 100 mcg Given 03/12/2020 1:54 PM CDT 100 mcg phenylephrine (JENNIFER-SYNEPHRINE) injection Intravenous, PRN, Starting on Sun03/12/20 at 1410, Until Sun03/12/20 at 1513, Anesthesia Intra-Op Given 03/12/2020 2:27 PM CDT 100 mcg Given 03/12/2020 2:24 PM CDT 100 mcg Given 03/12/2020 2:21 PM CDT 100 mcg documented in this encounter Care Teams Editor At Large Relationship Specialty Start Date End Date None, Provider, PCP - General 07/16/18 03/13/20 documented as of this encounter
--- OUTSIDE RECORDS SUMMARY | 2024-07-07 08:52 | XMS_ITS | Encounter Summary ---
Author Organization [facility] Address [facility] [facility] [place] [address] [place] [address] Care Team Providers Care Necktie Stitcher Name Role Phone Unavailable Primary Care Provider Unavailabl e Encounter Details Date Type Department Care Team (Latest Contact Info) Description 09/28/2017 2:54 PM CDT - 09/28/2017 3:55 PM CDT Hospital Encounter [facility] Labor & Delivery [address] [place], [place] [id number] Yara Carrasco MD [address] [place], [place] [phone] Discharge Disposition: Home or Self Care (Routine Discharge) Social History Tobacco Use Types Packs/Day Years Used Date Smoking Tobacco: Never Assessed Comments Yes Sex and Gender Information Value Date Recorded Sex Assigned at Not on file Legal Sex Female 5:47 PM CDT Gender Identity Not on file Sexual Orientation Not on file documented as of this encounter Last Filed Vital Signs Vital Sign Reading Time Taken Comments Blood Pressure 126/82 09/28/2017 3:15 PM CDT Pulse 120 09/28/2017 3:23 PM CDT Temperature 36.7 ??C (98.1 ??F) 09/28/2017 3:15 PM CD T Respiratory Rate 16 09/28/2017 3:15 PM CDT Oxygen Saturation - - Inhaled Oxygen Concentration - - Weight - - Height - - Body Mass Index - - documented in this encounter Discharge Instructions * Discharge Instructions* Juju Ndiaye RN - 09/28/2017 3:39 PM CDT Images from the original note were not included. Patient Education Acid Reflux (Gastroesophageal Reflux Disease) During The Basics Written by the doctors and editors at [facility] What is acid reflux???--??Acid reflux is when the acid that is normally in your stomach backs up into your esophagus (figure 1). The esophagus is the tube that carries food from your mouth to your stomach. Another term for acid reflux is gastroesophageal reflux disease, or GERD. Many women get acid reflux during . Acid reflux usually gets worse over the course of the . It usually goes away after the baby is born. Women who have acid reflux in one are likely to get it again in future pregnancies. What are the symptoms of acid reflux during ???--??The most common symptoms of acid refluxduring are: ?Burning in the chest, known as heartburn ?Burning in the throat or an acid taste in the mouth ?Stomach or chest pain ?Nausea or vomiting ?Trouble swallowing ?A raspy voice or sore throat ?A cough Will I need tests???--??Probably not. Your doctor or nurse should be able to tell if you have it bytalking with you and doing an exam. Is there anything I can do on my own to improve my symptoms???--??Yes. To help with your symptoms, you can: ?Avoid lying down within 3 hours of eating. ?Avoid eating within 3 hours of bedtime. ?Avoid wearing tight-fitting clothes. ?Avoid foods that make your symptoms worse. Foods that commonly make acid reflux worse are coffee, cola, tea, citrus foods, chocolate, and fatty foods. ?Raise the head of your bed by 6 to 8 inches (15 to 20 cm). You can do this by putting blocks of wood or rubber under 2 legs of the bed or using a Styrofoam wedge under your pillow. Are there treatments that can help reduce symptoms???--??Yes. There are 4 main types of medicines that can reduce acid reflux symptoms. They are: ?Antacids ?Surface agents ?Histamine blockers ?Proton pump inhibitors All of these medicines work by reducing or blocking stomach acid. But each of them does that in a different way (table 1). Doctors usually recommend that women first try antacids to reduce their symptoms. Most antacids are considered safe in , but some are not. If you are , do not take antacids that contain sodium bicarbonate and magnesium trisilicate. You can buy antacids without a prescription. If antacids don't help enough, let your doctor or nurse know. He or she might recommend that you try a surface agent, histamine cody, or proton pump inhibitor. These medicines work better than antacids to reduce symptoms. You can buy most histamine blockers and some proton pump inhibitors without a prescription. Before you use any [id number] medicines for acid reflux, talk to your doctor or nurse. He or she can tell you which ones are safe to use during . When should I call my doctor or nurse???--??Call your doctor or nurse if you: ?Have severe heartburn or chest pain, or these symptoms don't get better with treatment ?Have a fever, headache, nausea, or vomiting with your heartburn ?Choke when you eat, have trouble swallowing, or feel like food is getting stuck on the way down your throat ?Lose weight without trying ?Vomit bright red blood or material that looks like coffee grounds ?Have bowel movements that look like black tar All topics are updated as new evidence becomes available and our peer review process is complete. This topic retrieved from [employer] on: Jul 12, 2017. Topic 07633 Version 6.0 Release: 25.6.2-122 - C26.3 ?2018??[employer] and/or its affiliates.??All rights reserved. figure 1: Upper digestive tract The upper digestive tract includes the esophagus??(the tube than connects the mouth to the stomach), the stomach, and the duodenum (the first part of the small intestine). Graphic 51495 Version 5.0 table 1: Medicines used to reduce stomach acid Medicine type Medicine name examples Antacids* Calcium carbonate (sample brand name: Tums) Aluminum hydroxide, magnesium hydroxide, and simethicone (sample brand name: Maalox) Surface agents Sucralfate (brand name: Carafate) Histamine blockers Ranitidine (brand name: Zantac) Famotidine (brand name: Pepcid) Cimetidine (brand name: Tagamet) Proton pump inhibitors Omeprazole (brand name: Prilosec) Esomeprazole (brand name: Nexium) Pantoprazole (brand name: Protonix) Lansoprazole (brand name: Prevacid) Dexlansoprazole (brand name: Dexilant) Rabeprazole (brand name: AcipHex) Graphic 99526 Version 10.0 Consumer Information Use and Disclaimer This information is not specific medical advice and does not replace information you receive from your health care provider. This is only a brief summary of general information. It does NOT include all information about conditions, illnesses, injuries, tests, procedures, treatments, therapies, discharge instructions or life-style choices that may apply to you. You must talk with your health care provider for complete information about your health and treatment options. This information should not be used to decide whether or not to accept your health care provider's advice, instructions or recommendations. Only your health care provider has the knowledge and training to provide advice that is right for you.The use of [employer] content is governed by the [employer] Terms of Use. ??2018 [employer]. All rights reserved. Copyright ?2018??[employer] and/or its affiliates.??All rights reserved. documented in this encounter H&P Notes * Becca Miranda CNM - 09/28/2017 3:31 PM CDT WON Wilson is a 22-year-old female at 38 and 3/7 weeks gestation who is being admitted for observation. Her current obstetrical history is significant for prior . Patient reports occasional contractions. Movement: normal. OBJECTIVE Vital signs in last 24 hours: Pulse: [57-120] 120 BP: (117-126)/(81-82) 126/82 General: alert, appears stated age and cooperative Skin: normal HEENT: PERRLA Lungs: clear to auscultation bilaterally Heart: regular rate and rhythm Breasts: normal without suspicious masses, skin or nipple changes or axillary nodes Abdomen: soft, non-tender; bowel sounds normal; no masses, no organomegaly Pelvis: Vulva and vagina appear normal. Bimanual exam reveals normal uterus and adnexa. FHT: 140 BPM Uterine Size: size equals dates Presentations: cephalic Cervix: Dilation: Closed Effacement: Long Station: Floating Consistency: medium Position: posterior Lab Review O, Rh+, [id number]-[id number], Hepatitis B surface antigen non-reactive, GBS positive AFP:NML One hour GTT: elevated with normal 3 hour GTT ASSESSMENT 38 and 3/7 weeks gestation. Not in labor. Obstetrical history significant for prior . PLAN Risks, benefits, alternatives and possible complications have been discussed in detail with the patient. Pre-admission, admission, and post admission procedures and expectations were discussed in detail. All questions answered, all appropriate consents will be signed at the Hospital. Admission is not planned at this time . Not in labor, discharge home Presents with ctx q 12 min SVE cl/l/high Prior C/S desires to , discussed if presents with labor chances if successful increase Discussed hydration and latent labor GBS + will need abx when in labor Discharge home with Labor precautions. documented in this encounter Plan of Treatment Not on file documented as of this encounter Visit Diagnoses Diagnosis Abdominal pain during in third trimester (HHS/HCC)- Primary documented in this encounter
--- OUTSIDE RECORDS SUMMARY | 2024-07-07 08:52 | XMS_ITS | Encounter Summary ---
Author Organization [facility] Address [address] [place] [address] [place] [address] Care Team Providers Care Stone Planer Name Role Phone Unavailable Primary Care Provider Unavailabl e Encounter Details Date Type Department Care Team (Late st Contact Info) Description 03/23/2020 Hospital Follow-up Call [facility] Women and Infants [address] [place], [place] [id number] Roula Alanis RN Social History Tobacco Use Types Packs/Day Years [...]
--- OUTSIDE RECORDS SUMMARY | 2024-07-07 08:52 | XMS_ITS | Encounter Summary ---
Author Organization [facility] Address [address] [place] [address] [place] [address] Care Team Providers Care Agricultural Services Director Name Role Phone Unavailable Primary Care Provider Unavailabl e Encounter Details Date Type Department Care Team (Late st Contact Info) Description 03/28/2020 Hospital Follow-up Call [facility] Women and Infants [address] [place], [place] [phone] Yesenia Corcoran RN Social History Tobacco Use Types Packs/Day [...]
--- OUTSIDE RECORDS SUMMARY | 2024-07-07 08:52 | XMS_ITS | Encounter Summary ---
Author Organization [facility] Address Critical access hospital[facility] [place] [address] [place] [address] Care Team Providers Care Welder/Fitter Name Role Phone None, Provider Primary Care Provider Unavaila ble Reason for Visit * Reason Comments contractions every 1 -2 minutes * Auth/Cert Specialty Diagnoses / Procedures Referred By Contac t Referred To Contact Diagnoses N/A Procedures INPT Referral ID Status Reason Start Date Expiration Date Visits Re quested Visits Authorized [id number] 1 1 Encounter Details Date Type Department Care Team (Late st Contact Info) Description 03/12/2020 Surgery [facility] Labor [place] [address] Ritika Henley MD [address] [place] [id number] REPEAT SECTION Surgery Details Date/Time Status Location OR Service Patient Class Case Class Case Type Trauma Case? 03/12/2020 Posted JEIMY L+D Obstetrics Morning Admit E - Elective No Panel 1 Procedure LRB Anes Op Region Wound Class Comments REPEAT SECTION N/A Spinal Abdomen Clean Contaminated Surgeon Surgeon Role Service Panel Jael Iglesias DO Assisting Obstetrics 1 Ritika Henley MD Primary Obstetrics 1 Case Notes SCHED WITH FRANKLIN ON 03/10/2020 JADEN documented in this encounter Social History Tobacco [...] AM CDT documented as of this encounter Last Filed Vital Signs Vital Sign Reading Time Taken Comments Blood Pressure 133/73 03/12/2020 7:00 PM CDT Pulse 86 03/12/2020 4:10 PM CDT Temperature 36.8 ??C (98.3 ??F) 03/12/2020 8:00 PM CD T Respiratory Rate 16 03/12/2020 4:10 PM CDT Oxygen Saturation 99% 03/12/2020 7:00 PM CDT Inhaled Oxygen Concentration - - Weight 99.8 kg (220 lb) 03/12/2020 1:26 PM CDT Height 165.1 cm (5' 5 ) 03/12/2020 1:26 PM CDT Body Mass Index 36.61 03/12/2020 1:26 PM CDT documented in this encounter Functional Status * Question Answer [...] 03/12/2020 8:50 AM CDT Mariah Gonzalez RN Act jami * RETIRED Are you [...] Garrido RN Active documented in this encounter Discharge Summaries * Ritika Henley MD - 03/14/2020 11:49 AM CDT Obstetrical Discharge Form Admission Date: 03/12/2020 Discharge Date: 03/14/2020 Admission Diagnosis: Single intrauterine at 38 weeks, previous low transverse section x3, lower incisional abdominal pain with irregular contractions, chronic iron deficiency anemia Discharge Diagnosis: Same Antepartum complications: anemia Hospital Course: This is a 25-year-old 4 para 4 who is status post repeat low transverse section at 38 weeks 4 days gestation who presented to labor and delivery with regular contractions patient's stated that she had increased lower abdominal pain with the contractions and had a in cisional tenderness we proceeded with the repeat and at that time there were two 2 x 2 centimeter window as of just peritoneum representing the lower uterine segment we discussed with the patient that she should not get after this section and she wishes for a tubal ligation which we will do in the next 4 to 6 weeks. Patient's vital signs remained stable throughout her course stay in the hospital she was afebrile tolerating p.o. food fluids and medications patient's iron was low she was given iron and dextran IV thousand milligrams and she was discharged home standard discharge instruction orders and told to follow-up in the clinic as directed Labs: Recent Labs Lab 03/12/20 0857 03/13/20 1310 03/14/20 0526 WBC 9.6 13.6* -- HGB 9.2* 7.7* 8.1* PLT 165 133 -- No results for input(s): K, CR, GLU, AST, ALT in the last 168 hours. Other Studies: iron def anemia and we will give iron dextran 1000mg While in the hosp Physical Exam:VSS and afebrile General: alert, appears stated age and cooperative Skin: normal and no rash or abnormalities HEENT: neck supple with midline trachea Lungs: no respiratory distress Heart: regular rate and rhythm, edema: Trace Abdomen: Tenderness:mild,Fundus: firm, 3 cm below umbilicus, Incision:clean, dry and intact Pelvis: Vulva and vagina appear normal, Feeding method: bottle - Similac with iron Rh Immune globulin given: not applicable Rubella vaccine given: not applicable Assessment/Plan: S/p repeat section, low transverse incision. Will d/c to home with standard discharge instruction orders and told to follow up in the clinic as directed. We will set the patient up for laparoscopic bilateral tubal ligation in the next 4 to 6 weeks we will have her come back in 2 weeks to talk about this documented in this encounter Medications at Time of Discharge ferrous sulfate EC 325 (65 Fe) MG tablet Take 1 tablet (325 mg total) by mouth 2 (two) times daily with meals. 1 tablet/day with 4 ounces of orange juice, if does not upset stomach or constipate take this twice/day 60 tablet 03/14/2020 oxyCODONE-acetam inophen (PERCOCET) 5-325 MG tabletIndication s:Acute Pain < 7 Day Supply,surgery Take 1 tablet by mouth every 6 (six) hours as needed. Indications: Acute Pain < 7 Day Supply, surgery 20 tablet 03/14/2020 ibuprofen 800 MG tablet Take 1 tablet (800 mg total) by mouth every 8 (eight) hours as needed for Pain. May take every 6 hours for first 2 days 30 tablet 1 03/14/2020 0 documented as of this encounter Progress Notes * Ritika Henley MD - 03/13/2020 12:50 PM CDT Postop Note Subjective: Patient is doing well. Pain controlled. Normal lochia. Denies chest pain, shortness of breath or leg pain. Breast feeding: yes Objective: Filed Vitals: 03/12/20 1731 03/12/20 1900 03/12/20 2000 03/13/20 0000 BP: 122/69 133/73 Pulse: Resp: Temp: 98.3 ??F (36.8 ??C) 98.5 ??F (36.9 ??C) TempSrc: Oral Oral SpO2: 100% 99% Weight: Height: Intake/Output Summary (Last 24 hours) at 03/13/2020 1251 Last data filed at 03/13/2020 0400 Gross per 24 hour Intake 2450 ml Output 2842 ml Net -392 ml Lungs: CTA bilaterally Cardio: NSR Fundus firm, 0 cm below umbilicus Incision: clean, dry and intact Extremities: nontender, 1+ edema HGB Date Value Ref Range Status 03/12/2020 9.2 (L) 12.0 - 16.0 G/DL Final 07/16/2018 11.0 (L) 12.0 - 16.0 G/DL Final 05/16/2015 9.3 (L) 12.0 - 16.0 g/dL Final A/P: PPD/POD# 1 s/p delivery. Had discussed laparoscopic tubal ligation on 03-12-20 risks benefits and alternatives Stable Routine care Surgical course reviewed and questions answered. Continue routine cares. documented in this encounter H&P Notes * Ritika Henley MD - 03/12/2020 12:29 PM CDT History and Physical Travel Exposure: CC: ctxs HPI: Corina Wilson is a 25-year-old female with Estimated Date of Delivery: 03/22/20 at 38w4d weeks gestation who is being admitted for labor. movement: present Contractions: q 2-4 minutes Membranes:intact complications:prior Results for orders placed or performed during the hospital encounter of 03/12/20 URINALYSIS Result Value Ref Range Specimen Type URINE CLEAN CATCH COLOR (U) COLORLESS TRANSPARENCY CLEAR Specific [place] (U) 1.004 1.001 - 1.030 U PH 6.5 5.0 - 9.0 LEUKOCYTE ESTERASE 250 (A) NEGATIVE NITRITES NEGATIVE NEGATIVE PROTEIN (U) NEGATIVE <30 MG/DL URINE GLUCOSE NORMAL NORMAL MG/DL U KETONES NEGATIVE NEGATIVE MG/DL UROBILINOGEN NORMAL NORMAL MG/DL BILIRUBIN (U) NEGATIVE NEGATIVE MG/DL BLOOD NEGATIVE NEGATIVE WBC/HPF 2 <6 /HPF RBC/HPF 2 <6 /HPF BACTERIA (URINE) RARE (A) NONE /HPF SQUAMOUS EPITHELIALS RARE /HPF CBC W/DIFF AUTOMATED Result Value Ref Range WBC 9.6 4.5 - 11.0 x10'3/uL HGB 9.2 (L) 12.0 - 16.0 G/DL PLT 165 130 - 400 x10'3/uL OB History Para Term AB Living 4 3 2 3 SAB TAB Ectopic Molar Multiple Live Births 3 # Outcome Date GA Lbr Jitendra/2nd Weight Sex Delivery Anes PTL Lv 4 Current 3 Term 09/25/18 38w0d CS-LTranv LEAH 2 Para 10/15/17 40w0d 3629 g (8 lb) F Spinal N LEAH 1 Term 05/15/15 39w0d 3827 g (8 lb 7 oz) M Spinal N LEAH Comments: SCHEDULED C/SEC, FOR BABY'S SIZE No past medical history on file. Past Surgical History: Procedure Laterality Date ??? SECTION X2 Family History Problem Relation Name Age of Onset ??? Heart Disease Mother ??? Diabetes Mother Social History Socioeconomic History ??? Marital status: Spouse name: Not on file ??? Number of children: Not on file ??? Years of education: Not on file ??? Highest education level: Not on file Occupational History ??? Not on file Social Needs ??? Financial resource strain: Not on file ??? Food insecurity: Worry: Not on file Inability: Not on file ??? Transportation needs: Medical: Not on file Non-medical: Not on file Tobacco Use ??? Smoking status: Never Smoker ??? Smokeless tobacco: Never Used Substance and Sexual Activity ??? Alcohol use: No ??? Drug use: No ??? Sexual activity: Yes Partners: Male Lifestyle ??? Physical activity: Days per week: Not on file Minutes per session: Not on file ??? Stress: Not on file Relationships ??? Social connections: Talks on phone: Not on file Gets together: Not on file Attends episcopalian service: Not on file Active member of club or organization: Not on file Attends meetings of clubs or organizations: Not on file Relationship status: Not on file ??? Intimate partner violence: Fear of current or ex partner: Not on file Emotionally abused: Not on file Physically abused: Not on file Forced sexual activity: Not on file Other Topics Concern ??? Not on file Social History Narrative ??? Not on file No current facility-administered medications on file prior to encounter. No current outpatient medications on file prior to encounter. Allergies Allergen Reactions ??? Penicillins Swelling ROS no SOB cough or chest pain OBJECTIVE Vital signs in last 24 hours: Temp: [98.5 ??F (36.9 ??C)] 98.5 ??F (36.9 ??C) Pulse: [91-164] 108 Resp: [18] 18 BP: (114-128)/(50-82) 128/50 General: alert, appears stated age and cooperative Skin: normal and no rash or abnormalities HEENT: neck supple with midline trachea Lungs: no respiratory distress Heart: regular rate and rhythm Abdomen: soft, gravid, pain along the incision site which increase with ctx Pelvis: Vulva and vagina appear normal, FHT: 130 BPM; category 1 Contractions: q 4-7 minutes Uterine Size: Consistent with EGA, Presentations: cephalic EFW: 7 pounds, 8 ounces Cervix: Dilation: 1cm Effacement: 50% Station: -2 Consistency: medium Position: middle Labs: WBC Date Value Ref Range Status 03/12/2020 9.6 4.5 - 11.0 x10'3/uL Final HGB Date Value Ref Range Status 03/12/2020 9.2 (L) 12.0 - 16.0 G/DL Final PLT Date Value Ref Range Status 03/12/2020 165 130 - 400 x10'3/uL Final No results found for this or any previous visit. ASSESSMENT 38w4d weeks gestation. Blood Type: 0 pos Early latent labor. Obstetrical history significant for prior . Hemorrhage risk assessment: moderate PLAN Pain control plan: Spinal Antibiotics needed:Yes Prev c section and reg ctxs and she has low abd pain and we will plan on rltcs after all risks bebefits and alternatives discussed RITIKA HENLEY MD documented in this encounter OR Notes * Op Note - Ritika Henley MD - 03/12/2020 3:30 PM CDT OPERATIVE NOTE: REPEAT LOW TRANSVERSE SECTION Preoperative Diagnosis: 1. Term at term. 2. Prior delivery, requests repeat 3. Desires permanent sterilization Postoperative Diagnosis: 1. Same as Preop Surgeon: RITIKA HENLEY MD Writer Technical Publications: Dr Mellisa Iglesias Anesthesia: Spinal with duramorph Procedure: Repeat Low Transverse Section Findings: Live male with Apgars of 8 and 9, weight 8 pounds 7 ounces (), cephalic presentation, lop position, two nuchal cord (without compression); normal appearing uterus, tubes and ovaries. Estimated Blood Loss: 571 ml. Intravenous fluid replacement: 1700 ml. Urine Output: 200 ml of clear urine. Condition: stable on move to Post anesthesia care unit. Procedure: The patient was taken back to the operating room where intrathecal anesthesia was administered withDuramorph and found to be adequate. The patient was draped and prepped in a normal sterile fashion with a 15? left lateral tilt. A low transverse incision was made in the skin and carried through to the underlying fascia with the 10 blade. The fascia was nicked in the midline and extended laterally in either direction with the Leggett scissors. The superior aspect of the fascial incision was grasped with kokers x2 tented upwards and bluntly and sharply dissected off the rectus muscles. The inferior aspect of the fascial incision was then grasped with kokers x2 tented upwards and bluntly and sharply dissected off the rectus muscles. The rectus muscles were in the midline and the peritoneum identified and entered sharply with the Metzenbaum scissors and this incision was extended superiorly and inferiorly with good visualization of the bladder. The bladder blade was then placed a. Using a 10 blade a low transverse incision was made in the uterus and bluntly widened. At this point an amniotomy was performed and clear fluid and 800ccwas appreciated, the 's head was brought up into the incision and with fundal pressure the head was delivered without difficulty and the mouth and nose were then suctioned with the bulb suction. The rest of the baby was delivered out ontothe sterile field and the cord was clamped and cut and the infant was handed off to awaiting personnel. The placenta was then removed manually without difficulty using cord traction and fundal massage. The uterus was then exteriorized and the intrauterine cavity wiped clear of all clot anddebris with a lap sponge. The incision was then closed with an 0 Chromic suture in a running lockedfashion and then imbricated with 0 Chromic suture in a running fashion. The bladder flap was then reapproximated using 3-0 Vicryl suture, irrigation performed and the gutters were cleared of all clotand debris. The uterus was then replaced into the peritoneal cavity and the gutters were cleared of all clot and debris. The peritoneum was then reapproximated using 3-0 Vicryl suture in a running fashion. The rectus muscles were then reapproximated using 2-0 Vicryl suture. Good hemostasis was then noted alongthe muscle and subcutaneous tissues. The fascia was then reapproximated with 0 Vicryl suture in a running fashion first starting from the left lateral aspect and being that 0 Vicryl suture that was started from the right lateral aspect. The subcutaneous tissues were then irrigated and reapproximated with 3-0 Vicryl suture. The skin was then reapproximated with 4.0monocryl and dermabond and pressure dressing . The sponge lap and needle counts were correct x2, the incision dressed appropriately and the patient tolerated the procedure well. The patient was then transferred to the recovery room in stable condition after the uterus was expressed for all clot and debris documented in this encounter ED Notes * Kelly Lozada RN - 03/12/2020 8:27 AM CDT Called ob chartge, ok to bring her up to the floor KELLY LOZADA RN documented in this encounter Plan of Treatment Not on file documented as of this encounter Procedures Procedure Name Priority Date/Time Associated Diagnosis Comments HEMOGLOBIN AND HEMATOCRIT Routine 03/14/2020 5:26 AM CDT CBC, AUTO, NO DIFF Routine 03/13/2020 1: 10 PM CDT TYPE & SCREEN Routine 03/12/2020 9:08 AM CDT ([facility]) PATHOLOGY SLIDE CONSULT Routine 03/12/2020 8:57 AM CDT CBC W/DIFF AUTOMATED Routine 03/12/2020 8:57 AM CDT ([facility]) DRUG SCREEN RAPID STAT 03/12/2020 8:2 5 AM CDT ([facility]) HC URINALYSIS AUTO W/O MICRO STAT 03/12/2020 8:25 AM CDT ([facility]) CULTURE, GRP B STREP Routine 03/05/2020 HIV 1 ANTIGEN(S), WITH HIV-1 AND HIV-2 ANTIBODIES Routine 02/02/2020 OBSTETRIC PANEL Routine 02/02/2020 OBSTETRIC PANEL Routine 09/26/2019 HIV 1 ANTIGEN(S), WITH HIV-1 AND HIV-2 ANTIBODIES Routine 09/25/2001 SECTION PRIOR SECTION Case Notes SCHED WITH FRANKLIN ON 03/10/2020 JMIKE documented in this encounter Results * (ABNORMAL) HEMOGLOBIN AND HEMATOCRIT (03/14/2020 5:26 AM CDT) HGB 8.1(L) 12.0 - 16.0 G/DL 03/14/2020 5:36 AM CDT [facility] HCT 28.1(L) 38.0 - 48.0 % 03/14/2020 5:36 AM CDT [facility] 03/14/2020 5:26 AM CDT Ritika Henley MD LABORATORY Final Result [facility] [address] [place] [address], [place] [phone] * (ABNORMAL) CBC, AUTO, NO DIFF (03/13/2020 1:10 PM CDT) WBC 13.6(H) 4.5 - 11.0 x10'3/uL 03/13/2020 1:32 PM CDT [facility] RBC 3.82(L) 4.20 - 5.40 x10'6/uL 03/13/2020 1:32 PM CDT [facility] HGB 7.7(L) 12.0 - 16.0 G/DL 03/13/2020 1:32 PM CDT [facility] HCT 26.9(L) 38.0 - 48.0 % 03/13/2020 1:32 PM CDT [facility] MCV 70.4(L) 80.0 - 94.0 FL 03/13/2020 1:32 PM CDT [facility] MCH 20.2(L) 27.0 - 31.0 PG 03/13/2020 1:32 PM CDT [facility] MCHC 28.6(L) 32.0 - 36.0 G/DL 03/13/2020 1:32 PM CDT [facility] RDW 18.4(H) 11.5 - 14.5 % 03/13/2020 1:32 PM CDT [facility] PLT 133 130 - 400 x10'3/uL 03/13/2020 1:32 PM CDT [facility] MPV 10.2 9.3 - 12.2 FL 03/13/2020 1:32 PM CDT [facility] SEG NEUTROPHILS 79 % 0 2:22 PM CDT [facility] LYMPHOCYTES 12 % 03/13/2020 2:22 PM CDT [facility] MONOCYTES 5 % 03/13/2020 2:22 PM CDT [facility] EOSINOPHILS 1 % 03/13/2020 2:22 PM CDT [facility] BASOPHILS 3 % 03/13/2020 2:22 PM CDT [facility] ABS. NEUTROPHILS CALCULATED 10.74(H) 1.80 - 7.70 x10'3/uL 03/13/2020 2:22 PM CDT [facility] ABS.LYMPHOCYTES CALCULATED 1.63 1.00 - 4.80 x10'3/uL 03/13/2020 2:22 PM CDT [facility] ABS. MONOCYTES CALCULATED 0.68 0.24 - 0.86 x10'3/uL 03/13/2020 2:22 PM CDT [facility] ABS. EOSINOPHIL CALCULATED 0.14 0.04 - 0.36 x10'3/uL 03/13/2020 2:22 PM CDT [facility] ABS. BASOPHIL CALCULATED 0.41(H) 0.01 - 0.08 x10'3/uL 03/13/2020 2:22 PM CDT [facility] RBC MORPHOLOGY SLIDE REVIEWED 03/13/2020 2:22 PM CDT [facility] ANISO 1+ 03/13/2020 2:22 PM CDT [facility] HYPOCHROMASIA 1+ 03/13/2020 2:22 PM CDT [facility] MICRO 1+ 03/13/2020 2:22 PM CDT [facility] POLY 1+ 03/13/2020 2:22 PM CDT [facility] PLT EST. ADEQUATE 03/13/2020 2:22 PM CDT [facility] 03/13/2020 1:10 PM CDT us Ritika Henley MD LABORATORY Final Result Performing Organization Address [facility] Co de Phone Number [facility] [address] [place] [phone], * TYPE & SCREEN (03/12/2020 9:08 AM CDT) ABO/RH O POSITIVE 03/12/2020 10:59 AM CDT [facility] ANTIBODY SCREEN NEGATIVE 03/12/2020 10:59 AM CDT [facility] SAMPLE EXPIRATION 03/15/2020,2 359 03/12/2020 10:59 AM CDT [facility] 03/12/2020 9:08 AM CDT us Ritika Henley MD BLOOD BANK TEST ORDERABLES F inal Result Performing Organization Address [facility] Co de Phone Number [facility] [address] [place] [phone], * PATHOLOGY SLIDE CONSULT (03/12/2020 8:57 AM CDT) CBC PATHOLOGIST COMMENT PATHOLOGIST REVIEW ADDED TO REPORT 03/16/2020 8:47 PM CDT [facility] Comment: [id number] HYPOCHROMIC MICROCYTIC ANEMIA. ??CHANGES MAY BE SEEN IN IRON DEFICIENCY AND/OR THALASSEMIA. WBC'S AND PLATELETS UNREMARKABLE. ??AGREE WITH WBC DIFFERENTIAL. REVIEWED BY DANIE MONROE M.D., PATHOLOGIST. 03/12/2020 8:57 AM CDT us Ritika Henley MD PATHOLOGY/CYTOLOGY ORDERABLE S Final Result [facility] [address] [place] [address], * (ABNORMAL) CBC W/DIFF AUTOMATED (03/12/2020 8:57 AM CDT) WBC 9.6 4.5 - 11.0 x10'3/uL 03/12/2020 10:59 AM CDT [facility] RBC 4.53 4.20 - 5.40 x10'6/uL 03/12/2020 10:59 AM CDT [facility] HGB 9.2(L) 12.0 - 16.0 G/DL 03/12/2020 10:59 AM CDT [facility] HCT 31.6(L) 38.0 - 48.0 % 03/12/2020 10:59 AM CDT [facility] MCV 69.8(L) 81.0 - 99.0 FL 03/12/2020 10:59 AM CDT [facility] MCH 20.3(L) 27.0 - 31.0 PG 03/12/2020 10:59 AM CDT [facility] MCHC 29.1(L) 32.0 - 36.0 G/DL 03/12/2020 10:59 AM CDT [facility] RDW 18.7(H) 11.5 - 14.5 % 03/12/2020 10:59 AM CDT [facility] PLT 165 130 - 400 x10'3/uL 03/12/2020 10:59 AM CDT [facility] MPV 10.5 9.3 - 12.2 FL 03/12/2020 10:59 AM CDT [facility] DIFFERENTIAL TYPE MANUAL DIFFERENTIAL 03/12/2020 11:00 AM CDT [facility] SEG NEUTROPHILS 73 % 0 11:00 AM T [facility] LYMPHOCYTES 19 % 03/12/2020 11:00 AM CDT [facility] ATYP. LYMPHS 1 % 03/12/2020 11:00 AM CDT [facility] MONOCYTES 7 % 03/12/2020 11:00 AM CDT [facility] NRBC 2(H) 0 /100 WBC 03/12/2020 11:00 AM CDT [facility] ABS. NEUTROPHILS CALCULATED 7.01 1.80 - 7.70 x10'3/uL 03/12/2020 11:00 AM CDT [facility] ABS.LYMPHOCYTES CALCULATED 1.92 1.00 - 4.80 x10'3/uL 03/12/2020 11:00 AM CDT [facility] ABS. MONOCYTES CALCULATED 0.67 0.24 - 0.86 x10'3/uL 03/12/2020 11:00 AM CDT [facility] ABS. NUCLEATED RBC'S 0.19(H) 0.00 - 0.01 x10'3/uL 03/12/2020 11:00 AM CDT [facility] RBC MORPHOLOGY SLIDE REVIEWED 2019 11:00 AM CDT [facility] ANISO 103/12/2020 11:00 AM CDT [facility] POIKLO 103/12/2020 11:00 AM CDT [facility] HYPOCHROMASIA 03/12/2020 11:00 AM T [facility] MICRO 103/12/2020 11:00 AM CDT [facility] POLY 103/12/2020 11:00 AM T [facility] OVALOCYTES 103/12/2020 11:00 AM CDT [facility] PLT EST. ADEQUATE 03/12/2020 11:00 AM CDT [facility] PATHOLOGIST COMMENT PATHOLOGIST REVIEW TO FOLLOW. 03/12/2020 11:00 AM CDT [facility] 03/12/2020 8:57 AM CDT Ritika Henley MD LABORATORY Final Result [facility] [address] [place] [address], * (ABNORMAL) URINALYSIS (03/12/2020 8:25 AM CDT) SPECIMEN TYPE URINE CLEAN CATCH 03/12/2020 8:47 AM CDT [facility] COLOR (U) COLORLESS 03/12/2020 9:37 AM CDT [facility] TRANSPARENCY CLEAR 03/12/2020 9:37 AM CDT [facility] SPECIFIC GRAVITY (U) 1.004 1.001 - 1.030 03/12/2020 9:37 AM CDT [facility] U PH 6.5 5.0 - 9.0 03/12/2020 9:37 AM CDT [facility] LEUKOCYTES (U) 250(A) NEGATIVE 03/12/2020 9:37 AM CDT [facility] NITRITES NEGATIVE NEGATIVE 03/12/2020 9:37 AM CDT [facility] PROTEIN (U) NEGATIVE <30 MG/DL 03/12/2020 9:37 AM CDT [facility] URINE GLUCOSE NORMAL NORMAL MG/DL 03/12/2020 9:37 AM CDT [facility] KETONES MG/DL (U) NEGATIVE NEGATIVE MG/DL 03/12/2020 9:37 AM CDT [facility] UROBILINOGEN NORMAL NORMAL MG/DL 03/12/2020 9:37 AM CDT [facility] BILIRUBIN (U) NEGATIVE NEGATIVE MG/DL 03/12/2020 9:37 AM CDT [facility] BLOOD (U) NEGATIVE NEGATIVE 03/12/2020 9:37 AM CDT [facility] WBC/HPF 2 <6 /HPF 03/12/2020 9:37 AM CDT [facility] RBC/HPF 2 <6 /HPF 03/12/2020 9:37 AM CDT [facility] BACTERIA (U) RARE(A) NONE /HPF 03/12/2020 9:37 AM CDT [facility] SQUAMOUS EPITHELIALS RARE /HPF 03/12/2020 9:37 AM CDT [facility] URINE SPECIMEN OBTAINED BY CLEAN CATCH PROCEDURE / Unknown 03/12/2020 8:25 AM CDT us Ritika Henley MD URINE ORDERABLES Final Resul t [facility] [address] [place] [address], [place] [phone] * (ABNORMAL) DRUG SCREEN RAPID (03/12/2020 8:25 AM CDT) AMPHETAMINE (U) NEGATIVE NEGATIVE 0 9:32 AM CDT [facility] BARBITURATES SCREEN (U) NEGATIVE NEGATIVE 03/12/2020 9:32 AM CDT [facility] BENZODIAZEPINES SCREEN (U) NEGATIVE NEGATIVE 03/12/2020 9:32 AM CDT [facility] CANNABINOIDS SCREEN (U) NEGATIVE NEGATIVE 03/12/2020 9:32 AM CDT [facility] COCAINE METABOLITES (U) NEGATIVE NEGATIVE 03/12/2020 9:32 AM CDT [facility] METHADONE (U) NEGATIVE NEGATIVE 03/12/2020 9:32 AM CDT [facility] OPIATE SCREEN (U) NEGATIVE NEGATIVE 020 9:32 AM CDT [facility] PHENCYCLIDINE PCP (U) NEGATIVE NEGATIVE 03/12/2020 9:32 AM CDT [facility] Comment: NOTE: RESULTS OF THIS DRUG SCREEN SHOULD BE USED FOR MEDICAL PURPOSES ONLY AND NOT FOR LEGAL OR EMPLOYMENT PURPOSES. POSITIVE RESULTS ARE NOT CONFIRMED. MEDICATIONS CONTAINING EPHEDRINE MAY CAUSE FALSE POSITIVE AMPHETAMINE CALL , LAB, TO REQUEST CONFIRMATION TESTING. IF CREATININE IS <40 mg/dL. ??RECOLLECTION IS SUGGESTED. AMPHETAMINE- ?500 NG/ML BARBITURATE- ?200 NG/ML BENZODIAZEPINES- ??200 NG/ML THC- ? 50 NG/ML COCAINE- ?150 NG/ML METHADONE- ?300 NG/ML OPIATE- ? 300 MG/ML PCP- ? 25 NG/ML CREATININE (U) 17.0(L) 28 - 217 MG/DL 03/12/2020 9:32 AM CDT [facility] Urine specimen (specimen) URINE SPECIMEN / Unknown 03/12/2020 8:25 AM CDT Ritika Henley MD URINE ORDERABLES Final Resul t [facility] [address] [place] [address], [place] [phone] * CULTURE, GRP B STREP (03/05/2020) CULTURE GBS Positive us Doc [facility] - GENERAL ORDER OFELIA Final Result * OBSTETRIC PANEL (02/02/2020) SYPHILIS IGG AB Non-Reacti ve us Doc [facility] Final Result * HIV 1 ANTIGEN(S), WITH HIV-1 AND HIV-2 ANTIBODIES (02/02/2020) HIV 1/2 AB+ HIV1 P24 AG Non-Reacti ve Doc [facility] Final Result * OBSTETRIC PANEL (09/26/2019) HEPATITIS B SURFACE AG Non-Reactiv e RUBELLA IGG AB Immune SYPHILIS IGG AB Non-Reactiv e us Doc [facility] Final Result * HIV 1 ANTIGEN(S), WITH HIV-1 AND HIV-2 ANTIBODIES (09/25/2001) HIV 1/2 AB+ HIV1 P24 AG Non-Reacti ve Doc [facility] Final Result documented in this encounter Visit Diagnoses Not on filedocumented in this encounter Administered Medications Inactive Administered Medications - up to 3 most recent administrations Medication Order MAR Action Action Date Dose Rate Site ibuprofen (MOTRIN) tablet 600 mg 600 mg, Oral, Every 6 hours PRN, Mild pain (Scale 1 - 3), Starting on 03/13/20 at 2130, Until 03/14/20 at 2306 Given 03/14/2020 7:44 PM CDT 600 mg Given 03/14/2020 10:24 AM CDT 600 mg Given 03/14/2020 5:21 AM CDT 600 mg lactated ringers bolus infusion 250 mL 250 mL, Intravenous, Administer over 15 Minutes, Once as needed, for SBP less than 90, 2 doses, Starting on Sun03/12/20 at 1815, Until 03/14/20 at 2306, during first 24 hours post Intrathecal narcotic, may repeat x1 if symptoms unresolved metoclopramide (REGLAN) injection 10 mg 10 mg, Intravenous, Every 6 hours PRN, Nausea, Vomiting, Starting on Sun03/12/20 at 1815, Until 03/14/20 at 2306, If ondansetron (ZOFRAN) ineffective morphine injection 1 mg 1 mg, Intravenous, Every 2 hours PRN, Other, Severe breakthrough pain, 2 doses, Starting on Sun03/12/20 at 1815, Until Sun03/14/20 at 2306 naLOXone (NARCAN) 0.04 mg in sodium chloride (PF) 0.9 % IV syringe 0.04 mg, Intravenous, As needed, Every 3 minutes as needed for respiratory depression (apnea - less than 6 breaths/min or cyanosis), 4 doses, Starting on Sun03/12/20 at 1815, Until Sun03/14/20 at 2306, May repeat x 3 to attain a respiration rate of greater than 10 breaths/min. naLOXone (NARCAN) injection 0.2 mg 0.2 mg, Intravenous, Once as needed, for respiratory depression (apnea - less than 6 breaths per minute or cyanosis), 1 dose, Starting on Sun03/12/20 at 1815, Until Sun03/14/20 at 2306 oxyCODONE immediate release (ROXICODONE) tablet 5 mg 5 mg, Oral, Every 4 hours PRN, Moderate pain (Scale 4 - 7), Starting on 03/13/20 at 0729, Until 03/14/20 at 2306, Post-Op Given 03/14/2020 5:57 AM CDT 5 mg Given 03/13/2020 11:49 PM CDT 5 mg oxyCODONE-acetaminophen (PERCOCET) 5-325 MG tablet 1 tablet 1 tablet, Oral, Every 4 hours PRN, Severe pain (Scale 8 - 10), Starting on 03/13/20 at 1400, Until 03/14/20 at 2306, Maximum dose of acetaminophen is 4000 mg from all sources in 24 hours., Post-Op Given 03/14/2020 7:44 PM CDT 1 tab let senna-docusate (SENOKOT-S) 8.6-50 MG tablet 1 tablet 1 tablet, Oral, 2 times daily with meals, First dose on 03/13/20 at 0800, Until Discontinued, Post-Op Given 03/14/2020 10:24 AM CDT 1 tablet Given 03/13/2020 6:14 PM CDT 1 tablet Given 03/13/2020 9:20 AM CDT 1 tablet documented in this encounter Active and Recently Administered Medications Times are shown in CDT. Scheduled Medication Order 03/12/2020 03/13/2020 03/14/2020 citric acid-sodium citrate (BICITRA) oral solution 30 mL (COMPLETED) 30 mL, Oral, call center consultant to O.R., 1 dose, First dose (after last modification) on Sun03/12/20 at 1415, Sodium citrate-citric acid oral solution should be diluted with water or juice prior to oral administration. May follow with additional water after swallowing mixture, if desired., Pre-Op 1324 (Given - Provider: Melony Haines, NIMCO) clindamycin (CLEOCIN) 900 mg in sodium chloride 0.9 % 50 mL IVPB (COMPLETED) 900 mg, Intravenous, at 100 mL/hr, Once, 1 dose, On Sun03/12/20 at 1415 1357 (New Bag - Provider: Navneet Kilpatrick CRNA)1402 (Canceled Entry - Provider: Navneet Kilpatrick CRNA)1412 (Infusion Stop Time - Provider: Navneet Kilpatrick CRNA)1512 (Anesthesia Volume Adjustment - Provider: Dione Diaz) clindamycin (CLEOCIN) 900 mg in sodium chloride 0.9 % 50 mL IVPB (COMPLETED) 900 mg, Intravenous, at 100 mL/hr, Every 8 hours, 2 doses, First dose on 03/13/20 at 0730, Last dose on Sun03/13/20 at 1530, Post-Op 0930 (New Bag - Provider: Kathie Gregory RN)1000 (Infusion Stop Time - Provider: Kathie Gregory RN)1811 (New Bag - Provider: Kathie Gregory RN)1845 (Infusion Stop Time - Provider: Kathie Gregory RN) famotidine (PEPCID) injection 20 mg (COMPLETED) 20 mg, Intravenous, call center consultant to O.R., 1 dose, First dose on Sun03/12/20 at 1400, 30 minutes prior to surgery IV Push over 2 minutes, Pre-Op 1324 (Given - Provider: Melony Haines, NIMCO) gentamicin (GARAMYCIN) 500 mg in sodium chloride 0.9 % 100 mL IVPB (COMPLETED) 500 mg, Intravenous, at 100 mL/hr, Once, 1 dose, On 03/13/20 at 0730, 5 mg/kg actual body weight per SCIP, pharmacy to dose aminoglycoside, Post-Op 1015 (New Bag - Provider: Kathie Gregory RN)1115 (Infusion Stop Time - Provider: Kathie Gregory RN) iron dextran complex (INFED) 25 mg in sodium chloride 0.9 % 50 mL IVPB (COMPLETED) 25 mg, Intravenous, Administer over 15 Minutes, Once, 1 dose, On Sun03/14/20 at 1215, Monitor BP and observe of anaphylaxis. 1402 (New Bag - Provider: Kathie Gregory RN)1417 (Infusion Stop Time - Provider: Kathie Gregory RN) iron dextran complex (INFED) 975 mg in sodium chloride 0.9 % 250 mL IVPB (COMPLETED) 975 mg, Intravenous, Administer over 2 Hours, Once, 1 dose, On 03/14/20 at 1215, Monitor BP and observe for anaphylaxis. Give no faster than 50 mg/min. 1638 (New Bag - Provider: Kathie Gregory RN)1838 (Due: Infusion Stop Time - Provider: Kathie Gregory RN) ketorolac (TORADOL) injection 30 mg (CANCELED) 30 mg, Intravenous, Every 6 hours, 20 doses, First dose on Sun03/12/20 at 1845, Last dose on Sun03/17/20 at 1400, For IV administration, give over 15 seconds. 1853 (Given - Provider: Mariah Gonzalez RN) 0205 (Given - Provider: Reena Crane RN)0919 (Given - Provider: Kathie Gregory RN)1526 (Given - Provider: Kathie Gregory RN) lactated ringers bolus infusion 999 mL (COMPLETED) 999 mL, Intravenous, Administer over 60 Minutes, Once, 1 dose, On Sun03/12/20 at 0915 0908 (New Bag - Provider: Mariah Gonzalez RN)1008 (Due: Infusion Stop Time - Provider: Mariah Gonzalez RN) methylergonovine (METHERGINE) injection 0.2 mg (COMPLETED) 0.2 mg, Intramuscular, Once, 1 dose, On Sun03/12/20 at 1500, HAZARDOUS MEDICATION 1457 (Given - Provider: Mariah GonzalezNIMCO) metoclopramide (REGLAN) injection 10 mg (COMPLETED) 10 mg, Intravenous, call center consultant to O.R., 1 dose, First dose on Sun03/12/20 at 1400, 30 minutes prior to surgery, Pre-Op 1324 (Given - Provider: Melony Haines RN) miSOPROStol (CYTOTEC) tablet 1,000 mcg (COMPLETED) 1,000 mcg, Rectal, Once, 1 dose, On Sun03/12/20 at 1500 1457 (Given by Other - Provider: Mariah Gonzalez RN - Comment: GIVEN BY DR. HENLEY) senna-docusate (SENOKOT-S) 8.6-50 MG tablet 1 tablet 1 tablet, Oral, 2 times daily with meals, First dose on 03/13/20 at 0800, Until Discontinued, Post-Op 0920 (Given - Provider: Kathie Gregory RN)1814 (Given - Provider: Kathie Gregory RN) 1024 (Given - Provider: Kathie Gregory RN)1700 (Canceled Entry - Provider: Automatic Discharge Provider - Comment: Automatically canceled at discontinue of medication order) Continuous Medication Order 03/12/2020 03/13/2020 03/14/2020 lactated ringers infusion (CANCELED)(Linked Group 1) at 150 mL/hr, Intravenous, Continuous, Starting on Sun03/12/20 at 1530, Until 03/13/20 at 1840, Pre-Op 1341 (New Bag - Provider: Navneet Kilpatrick CRNA)1512 (Infusion Stop Time - Provider: Dione Diaz)2127 (New Bag - Provider: Reena Crane RN) oxytocin (PITOCIN) 30 units in NS 500 mL infusion (CANCELED) 0-300 mL/hr, Intravenous, Continuous, Starting on Sun03/12/20 at 1415, Until 03/13/20 at 1840, Initial rate at 300 ml/hr for the 1st hour, then decrease to 60 mL/hr for the 2nd hour. Continue this rate until the fundus is firm or the patient has completed her recovery phase. HAZARDOUS MEDICATION, Pre-Op 1404 (New Bag - Provider: Teena Desai CRNA)1444 (Infusion Stop Time - Provider: Navneet Kilpatrick CRNA) PRN Medication Order 03/12/2020 03/13/2020 03/14/2020 bisacodyl (DULCOLAX) suppository 10 mg 10 mg, Rectal, Daily as needed, Constipation, Starting on 03/13/20 at 0717, Until 03/14/20 at 2306, Post-Op diphenhydrAMINE (BENADRYL) capsule 25 mg 25 mg, Oral, Every 4 hours PRN, Itching, Congestion, Starting on 03/13/20 at 0717, Until 03/14/20 at 2306, Post-Op diphenhydrAMINE (BENADRYL) injection 12.5 mg (CANCELED) 12.5 mg, Intravenous, Every 4 hours PRN, Itching, Starting on Sun03/12/20 at 1423, Until 03/13/20 at 0717, For IV administration, give no faster than 25 mg/min., Post-Op 1820 (Given - Provider: Katina Xiao RN)2251 (Given - Provider: Reena Crane RN) 0256 (Given - Provider: Reena Crane RN) ibuprofen (MOTRIN) tablet 600 mg 600 mg, Oral, Every 6 hours PRN, Mild pain (Scale 1 - 3), Starting on 03/13/20 at 2130, Until 03/14/20 at 2306 2349 (Given - Provider: Justine Markham RN) 0521 (Given - Provider: Justine Markham, NIMCO)1024 (Given - Provider: Kathie Gregory RN)1944 (Given - Provider: Cindy Fuchs RN) lactated ringers bolus infusion 250 mL 250 mL, Intravenous, Administer over 15 Minutes, Once as needed, for SBP less than 90, 2 doses, Starting on Sun03/12/20 at 1815, Until 03/14/20 at 2306, during first 24 hours post Intrathecal narcotic, may repeat x1 if symptoms unresolved magnesium hydroxide (MILK OF MAGNESIA) 400 MG/5ML suspension 30 mL 30 mL, Oral, 2 times daily PRN, Constipation, Starting on 03/13/20 at 0717, Until 03/14/20 at 2306, Shake Well, Post-Op dzmnchkhe-uaegwenl-mnirg hicone (MYLANTA MAXIMUM STRENGTH) 5921-0649-754 mg/30mL suspension 10 mL, Oral, Every 4 hours PRN, Indigestion, Heartburn, Starting on 03/13/20 at 0717, Until 03/14/20 at 2306, Shake Well, Post-Op metoclopramide (REGLAN) injection 10 mg 10 mg, Intravenous, Every 6 hours PRN, Nausea, Vomiting, Starting on Sun03/12/20 at 1815, Until 03/14/20 at 2306, If ondansetron (ZOFRAN) ineffective morphine injection 1 mg 1 mg, Intravenous, Every 2 hours PRN, Other, Severe breakthrough pain, 2 doses, Starting on Sun03/12/20 at 1815, Until 03/14/20 at 2306 naLOXone (NARCAN) 0.04 mg in sodium chloride (PF) 0.9 % IV syringe 0.04 mg, Intravenous, As needed, Every 3 minutes as needed for respiratory depression (apnea - less than 6 breaths/min or cyanosis), 4 doses, Starting on Sun03/12/20 at 1815, Until 03/14/20 at 2306, May repeat x 3 to attain a respiration rate of greater than 10 breaths/min. naLOXone (NARCAN) injection 0.2 mg 0.2 mg, Intravenous, Once as needed, for respiratory depression (apnea - less than 6 breaths per minute or cyanosis), 1 dose, Starting on Sun03/12/20 at 1815, Until 03/14/20 at 2306 ondansetron (ZOFRAN) injection 4 mg (CANCELED) 4 mg, Intravenous, Every 8 hours PRN, Nausea, Vomiting, Starting on Sun03/12/20 at 0844, Until 03/13/20 at 0717, IV push over 2-5 minutes. 1422 (Given - Provider: Navneet Kilpatrick CRNA) oxyCODONE immediate release (ROXICODONE) tablet 5 mg 5 mg, Oral, Every 4 hours PRN, Moderate pain (Scale 4 - 7), Starting on 03/13/20 at 0729, Until 03/14/20 at 2306, Post-Op 2349 (Given - Provider: Justine Markham RN) 0557 (Given - Provider: Justine Markham RN) oxyCODONE-acetaminophen (PERCOCET) 5-325 MG tablet 1 tablet 1 tablet, Oral, Every 4 hours PRN, Severe pain (Scale 8 - 10), Starting on 03/13/20 at 1400, Until 03/14/20 at 2306, Maximum dose of acetaminophen is 4000 mg from all sources in 24 hours., Post-Op 1944 (Given - Provider: Cindy Fuchs, NIMCO) simethicone (MYLICON) chewable tablet 80 mg 80 mg, Oral, 4 times daily PRN, Flatulence, Starting on 03/13/20 at 0717, Until 03/14/20 at 2306, Post-Op Linked Groups Order Group 1: lactated ringers bolus infusion 1,500 mL (CANCELED) 1,500 mL, Intravenous, Administer over 1.5 Hours, Once, 1 dose, On Sun03/12/20 at 1415, Infuse 30 minutes prior to scheduled surgery time, Pre-Op Followed by lactated ringers infusion (CANCELED)Jump to med at 150 mL/hr, Intravenous, Continuous, Starting on Sun03/12/20 at 1530, Until 03/13/20 at 1840, Pre-Op documented in this encounter Care Teams Welder/Fitter Relationship Specialty Start Date End Date None, Provider, PCP - General 07/16/18 03/13/20 documented as of this encounter
--- OUTSIDE RECORDS SUMMARY | 2024-07-07 08:52 | XMS_ITS | Encounter Summary ---
Author Organization [facility] Address [facility]. [place], [place] [id number] [place] [id number] Care Team Providers Care Environmental Auditor Name Role Phone Unavailable Primary Care Provider Unavailabl e Reason for Visit * Reason Comments Breast Pain Encounter Details Date Type Department Care Team (Late st Contact Info) Description 12/22/2021 9:24 PM CDT - 12/22/2021 9:55 PM CDT Emergency [facility] [place] [address] Laurel Chavis, JOEY [address] [id number] Breast Pain Discharge Disposition: Home or Self Care (Routine [...] PM CDT documented as of this encounter Last [...] Mass Index 33.9 12/22/2021 9:19 PM CDT documented in this encounter Functional Status * RETIRED Are [...] Date Author Status No 03/12/2020 8:50 AM CDT Mariah Gonzalez RN Active documented in this encounter Discharge Instructions * Discharge Instructions* JOEY Pearl - 12/22/2021 9:44 PM CDT Thank you for giving us the opportunity to care for you today. If at any point you are becoming more ill, please call your doctor or return here. You are always welcome back. Our practice is committed to providing you the very best in healthcare. We want to hear from you! Please fill out the survey you get from us. Your feedback is anonymous & helps us improve the patient experience for you and others in the community we serve. - CELINA Mccurdy PA-C - Emergency Medicine Provider ADDITIONAL DISCHARGE INSTRUCTIONS: --Emergency Departments (ED) provide medical screening exams and initial stabilizing treatment of emergency medical conditions. Medicine is an inexact science and many conditions cannot be diagnosed or completely treated during a single ED visit. Your treating healthcare provider(s) today feel yourcondition has been stabilized so further care as an outpatient is reasonable. Emergency care does not substitute for complete, ongoing, or follow-up care by your primary care physician or business management consultant.Please mention to your follow-up physician that you were in the emergency department and request that they review your labs and/or imaging to ensure all findings are followed up on. --Your medication list was reviewed prior to treatment, and at discharge, by the treating provider for the purpose of this outpatient visit only. Please review this entire medication list with your pharmacist, primary care physician, and specialist(s). It is your responsibility to share any new medication instructions you received this visit with your doctor(s). Although no medicine is without risk, your healthcare provider today feels reasonable decisions were made concerning starting new medications and stopping or changing the dosages of your usual medications until you receive follow-up care. Take medications only as directed. Many medications can cause drowsiness, especially those for pain, anxiety, muscle spasms, nausea, and allergies. DO NOT drive, drink alcohol, operate power machinery, or participate in potentially dangerous activities if taking medicines that make you tired. Chronic pain is best managed by pain specialists or primary care physicians, so narcotic refills are not routinely dispensed in the ED. DO NOT take multiple medications containing acetaminophen (Tylenol), such as many narcotic drug combinations and [id number]-[id number] cold medicines. * Attachments The following attachments cannot be sent through Care Everywhere. * Common Breast Problems (Swedish) documented in this encounter Medications at Time [...] 7 Day Supply, surgery 20 tablet 03/14/2020 documented as of this encounter ED Notes * Diann Land RN - 12/22/2021 9:50 PM CDT Provider discussed today's findings with the patient/family. The patient has been given informationregarding their treatment, follow up and concerning symptoms for which they should seek urgent or emergent attention. I have expressed the the importance of seeking attention should there be any new,or worsening symptoms or persistence of their condition. Patient verbalized understanding of the discharge instructions. * JOEY Pearl - 12/22/2021 9:43 PM CDT [place], [place] EMERGENCY DEPARTMENT ENCOUNTER HISTORICAL INFORMATION Primary Care Doctor: No primary care provider on file. Patient information was obtained primarily from the patient, nursing notes. History/Exam limitations: None Provider at Bedside Date/Time Event User Comments 12/22/21 3000 Provider at Bedside Assessing Patient LAUREL CHAVIS -- CHIEF COMPLAINT Breast Pain Chief Complaint Patient presents with ??? Breast Pain HPI Corina Wilson is a 26-year-old female who presents with right breast pain which started on Sunday. She denies noticing any lumps or bumps. Denies any redness, rash, or swelling. No nipple discharge. No fevers. Does not believe she could be . States she just finished her cycle. No new bras or clothing. PAST MEDICAL HISTORY History reviewed. No pertinent past medical history. SURGICAL HISTORY Past Surgical History: Procedure Laterality Date ??? SECTION X2 CURRENT MEDICATIONS No current facility-administered medications for this encounter. Current Outpatient Medications: ??? ferrous sulfate EC 325 (65 Fe) MG tablet, Take 1 tablet (325 mg total) by mouth 2 (two) times daily with meals. 1 tablet/day with 4 ounces of orange juice, if does not upset stomach or constipatetake this twice/day, Disp: 60 tablet, Rfl: 0 ??? oxyCODONE-acetaminophen (PERCOCET) 5-325 MG tablet, Take 1 tablet by mouth every 6 (six) hours as needed. Indications: Acute Pain < 7 Day Supply, surgery, Disp: 20 tablet, Rfl: 0 ALLERGIES Allergies Allergen Reactions ??? Penicillins Swelling FAMILY HISTORY Family History Problem Relation Name Age of Onset ??? Heart Disease Mother ??? Diabetes Mother SOCIAL HISTORY Social History Socioeconomic History ??? Marital status: Tobacco Use ??? Smoking status: Never Smoker ??? Smokeless tobacco: Never Used Substance and Sexual Activity ??? Alcohol use: No ??? Drug use: No ??? Sexual activity: Yes Partners: Male REVIEW OF SYSTEMS Constitutional: +Breast tenderness. Denies fever, chills, weight loss or weakness. Skin: Denies rash. HEENT: Denies sore throat or ear pain. Respiratory: Denies cough or shortness of breath. Cardiovascular: Denies chest pain, palpitations or swelling. GI: Denies abdominal pain, nausea, vomiting, or diarrhea. : Denies dysuria, urinary frequency. Musculoskeletal: Denies back pain. Neurologic: Denies headache, focal weakness or sensory changes. Psychiatric: Denies depression, suicidal ideation or homicidal ideation. See HPI for further details. All systems negative except as marked. Physical Exam VITAL SIGNS: Filed Vitals: 12/22/21 2119 BP: (!) 165/106 Pulse: 75 Resp: 16 Temp: 97.5 ??F (36.4 ??C) TempSrc: Temporal SpO2: 100% Weight: 92.4 kg (203 lb 11.3 oz) Height: 5' 5 (1.651 m) Constitutional: Well developed, No acute distress, Non-toxic appearance. Integument: Warm, Dry, No erythema, No rash. HEENT: Normocephalic, Atraumatic, Conjunctiva normal Neck/Back- Normal range of motion, No gross abnormality Brest: Right breast with tenderness of breast in lower aspect, no obvious swelling, no skin discoloration- no redness, rash, contusion, no wounds, no palpable mass or lump, no nipple discharge. Respiratory: Normal breath sounds, No respiratory distress. Cardiovascular: Normal heart rate, Normal rhythm Musculoskeletal: Good ROM, no deformities noted Neurologic: Alert & oriented x 3, No focal deficits noted. Psychiatric: Affect normal, Judgment normal, Mood normal. EKG (interpreted by ED provider) No results found for this visit on 12/22/21. LABORATORY Results for orders placed or performed during the hospital encounter of 12/22/21 POCT urine Result Value Ref Range URINE HCG TEST negative NEGATIVE Internal Control performed as Expected? valid VALID RADIOLOGY No orders to display PROCEDURES Procedures MDM ED Course as of 12/22/212145 Flori Dec 22, [id number] URINE HCG TEST: negative [HS] 2143 By exam no abnormal findings. Advised will need follow-up with TRANSIT OPERATOR for further evaluation if symptoms persist. Will provide information for on-call [facility]. [HS] ED Course User Index [HS] JOEY Pearl I have discussed today's findings with the patient and provided information regarding the likely diagnosis. The patient has been given information regarding their treatment, follow up and concerning symptoms for which they should seek urgent or emergent attention. I have expressed the the importance of seeking attention should there be any new, or worsening symptoms or persistence of their condition. The patient is stable at discharge and has verbalized understanding of these instructions. Impression/Disposition SNOMED CT(R) 1. Breast tenderness BREAST TENDERNESS Disposition: Discharge Medications - No data to display Current Discharge Medication List JOEY PEARL PA 12/22/212145 Cosigned by Kevin Reddy MD at 12/22/2021 10:42 PM CDT * Peace Lea RN - 12/22/2021 9:19 PM CDT Pt to ED from home with c/o right breast pain that started on Sunday. Pt reports tenderness, denies swelling or discoloration. Pt denies injury. documented in this encounter Plan of Treatment Not on file documented as of this encounter Procedures Procedure Name Priority Date/Time Associated Diagnosis Comments POCT URINE (BACK OFFICE) STAT 12/22/2021 9:36 PM CDT documented in this encounter Results * POCT urine (12/22/2021 9:36 PM CDT) URINE HCG TEST negative NEGATIVE Internal Control performed as Expected? valid VALID Laurel COOK POINT OF CARE TEST ORDERABL ES Final Result documented in this encounter Visit Diagnoses Diagnosis Breast tenderness- Primary Mastodynia documented in this encounter
--- OUTSIDE RECORDS SUMMARY | 2024-07-07 08:52 | XMS_ITS | Encounter Summary ---
Author Organization [facility] Address [facility] [place] [address] [place] [address] Care Team Providers Care Sole Conforming Machine Operator Name Role Phone Unavailable Primary Care Provider Unavailabl e Reason for Visit * Reason Comments Abdominal Pain Breathing Problem Encounter Details Date Type Department Care Team (Latest Contact Info) Description 02/27/2018 7:20 PM CDT - 02/27/2018 8:21 PM CDT Hospital Encounter [facility] [address] [place], [place] [id number] Tasha Gong, AUTOMATIC SHIRRING MACHINE OPERATOR [address] [facility] [address] [place], [place] [id number] Abdominal Pain; Breathing Problem Discharge Disposition: Home or Self Care (Routine [...] Sign Reading Time Taken Comments Blood Pressure 139/85 02/27/2018 7:26 PM CDT Pulse 81 02/27/2018 7:26 PM CDT Temperature 37.4 ??C (99.3 ??F) 02/27/2018 7:26 PM CD T Respiratory Rate 18 02/27/2018 7:26 PM CDT Oxygen Saturation 99% 02/27/2018 7:26 PM CDT Inhaled Oxygen Concentration - - Weight 81.6 kg (180 lb) 02/27/2018 7:26 PM CDT Height 160 cm (5' 3 ) 02/27/2018 7:26 PM CDT Body Mass Index 31.89 02/27/2018 7:26 PM CDT documented in this encounter Discharge Instructions * Discharge Instructions* Tasha Mujica Beltran, AUTOMATIC SHIRRING MACHINE OPERATOR - 02/27/2018 8:15 PM CDT Images from the original note were not included. Patient Education Acid Reflux (Gastroesophageal Reflux Disease) Discharge Instructions, Adult About this topic GERD stands for gastroesophageal reflux disease. It is sometimes just called reflux. Normally, foodgoes from the mouth through the food pipe and then into the belly. The food pipe is also called theesophagus. This condition happens when the contents of the belly leak into the food pipe. This leaking can irritate the food pipe. You may feel a burning pain in your chest called heartburn. You may have burping, bloating, and belly pain after eating. GERD can be treated in many different ways. Sometimes, doctors use drugs or suggest changes in lifestyle. Other times, diet changes or surgery is needed. What care is needed at home? ?? Ask your doctor what you need to do when you go home. Make sure you ask questions if you do not understand what the doctor says. This way you will know what you need to do. ?? Maintain a healthy weight. ?? Avoid stress. ?? Avoid belts and clothes that are too tight. ?? Eat small meals more often. Do not skip meals. Do not eat large meals to make up for missed meals. ?? Avoid eating 2 to 3 hours before bedtime. ?? Do not to lie down for at least 2 hours after eating. ?? Raise the head of your bed 6 to 8 inches (15 to 20 cm). Use wooden blocks under the head of the bed. Just sleeping with your head raised on pillows is not enough. It can cause discomfort and make your signs worse. ?? Do not drink beer, wine, and mixed drinks (alcohol). ?? Do not smoke. What follow-up care is needed? Your doctor may ask you to make visits to the office to check on your progress. Be sure to keep these visits. What drugs may be needed? The doctor may order drugs to: ?? Relieve heartburn ?? Prevent reflux ?? Lessen acid production ?? Heal the esophageal lining Will physical activity be limited? Your physical activities will not be limited. What changes to diet are needed? ?? Limit caffeine intake. ?? Avoid eating oranges, berries, tomatoes, and other foods high in acid. ?? Eat only small amounts of spicy, fatty, and fried foods, or avoid them altogether. ?? Keep track of the foods that cause your signs to become worse. Avoid or limit these food items. What problems could happen? ?? Asthma ?? Precancerous changes in the food pipe ?? Long-term cough ?? Dental problems ?? Higher risk of cancer of the food pipe. This is esophageal cancer. ?? Narrowing of the food pipe. This is a stricture. ?? Open sore in the food pipe. This is an ulcer. When do I need to call the doctor? ?? Pain or a feeling of food getting stuck in your throat ?? Frequent throwing up or throwing up fluid that looks like blood or coffee grounds ?? Pain in the chest or upper part of the belly ?? Very bad heartburn that lasts for a long time ?? Cough, hoarseness of voice, or bad breath ?? Wheezing, shortness of breath or other problems breathing ?? Unintended weight loss or not wanting to eat ?? You are not feeling better in 2 to 3 days or you are feeling worse Teach Back: Helping You Understand The Teach Back Method helps you understand the information we are giving you. The idea is simple. After talking with the staff, tell them in your own words what you were just told. This helps to makesure the staff has covered each thing clearly. It also helps to explain things that may have been abit confusing. Before going home, make sure you are able to do these: ?? I can tell you about my condition. ?? I can tell you what changes I need to make with my eating habits to ease the reflux. ?? I can tell you what I will do if I am throwing up fluid that looks like blood or coffee grounds. Where can I learn more? National Digestive Diseases Information Clearinghouse http://digestive.niddk.nih.gov/ddiseases/pubs/gerd/ Last Reviewed Date 2017-02-27 Consumer Information Use and Disclaimer This information [...] or not to accept your health care provider???s advice, instructions or recommendations. Only your health care provider has the knowledge and training to provide advice that is right for you. Copyright Copyright ?? 2018 [employer]. and its affiliates and/or licensors. All rights reserved. * Attachments The following attachments cannot be sent through Care Everywhere. * ??? THE SECOND MONTH (AZERI) documented in this encounter ED Notes * LUCY Lawrence - 02/27/2018 7:58 PM CDT Chief Complaint Chief Complaint Patient presents with ??? Abdominal Pain ??? Breathing Problem History of Present Illness 22 y f presents with sob, epigastric discomfort for last 2 days, denies cough, cold, congestion, nourinary complaints, lmp January 02, had baby in October 2017. Patient is a 22-year-old female presenting with abdominal pain and difficulty breathing. History provided by: Patient deaf interpreter used: No Abdominal Pain Pain location: Epigastric Pain quality: bloating Pain radiates to: Does not radiate Pain severity: Mild Onset quality: Gradual Duration: 2 days Timing: Constant Progression: Unchanged Chronicity: New Associated symptoms: shortness of breath Breathing Problem Associated symptoms: abdominal pain and shortness of breath Medical History ALLERGIES: Allergies Allergen Reactions ??? Penicillins Swelling MEDICATIONS: Prior to Admission medications Not on File PAST MEDICAL HISTORY: History reviewed. No pertinent past medical history. PAST SURGICAL HISTORY: Past Surgical History: Procedure Laterality Date ??? SECTION FAMILY HISTORY: Family History Problem Relation Age of Onset ??? Heart Disease Mother ??? Diabetes Mother SOCIAL HISTORY: Social History Substance Use Topics ??? Smoking status: Never Smoker ??? Smokeless tobacco: Never Used ??? Alcohol use No Review of Systems Review of Systems Constitutional: Positive for unexpected weight change. Respiratory: Positive for shortness of breath. Gastrointestinal: Positive for abdominal pain. All other systems reviewed and are negative. Physical Exam Filed Vitals: 02/27/181925 BP: 139/85 Pulse: 81 Resp: 18 Temp: 99.3 ??F (37.4 ??C) TempSrc: Oral SpO2: 99% Weight: 81.6 kg (180 lb) Height: 5' 3 (1.6 m) Physical Exam Constitutional: She is oriented to person, place, and time. She appears well- developed and well-nourished. HENT: Head: Normocephalic. Eyes: Conjunctivae and EOM are normal. Pupils are equal, round, and reactive to light. Neck: Normal range of motion. Neck supple. Cardiovascular: Normal rate, regular rhythm and normal heart sounds. Pulmonary/Chest: Effort normal and breath sounds normal. Abdominal: Soft. Bowel sounds are normal. Musculoskeletal: Normal range of motion. Neurological: She is alert and oriented to person, place, and time. Skin: Skin is warm and dry. Diagnostic Studies / Procedures ELECTROCARDIOGRAMS: No results found for this visit on 02/27/18. LABORATORY STUDIES: Results for orders placed or performed during the hospital encounter of 02/27/18 D DIMER WHOLE BLOOD Result Value Ref Range D-DIMER <100 0 - 600 ng[D DU]/mL URINALYSIS AUTO DIP Result Value Ref Range Specimen Type URINE CLEAN CATCH COLOR YELLOW TRANSPARENCY CLEAR Specific [place] (U) 1.020 1.001 - 1.030 U PH 6.0 5.0 - 9.0 LEUKOCYTE ESTERASE NEGATIVE NEGATIVE NITRITES NEGATIVE NEGATIVE PROTEIN, URINE NEGATIVE <30 MG/DL URINE GLUCOSE NEGATIVE NEGATIVE MG/DL U KETONES TRACE (A) NEGATIVE MG/DL UROBILINOGEN 1.0 (A) NEGATIVE MG/DL Urine Bilirubin NEGATIVE NEGATIVE MG/DL BLOOD NEGATIVE NEGATIVE CULTURE & SENSITIVITY INDICATED? CULTURE IS NOT INDICATED TEST URINE Result Value Ref Range PREG TEST POSITIVE Specific [place] (U) 1.020 >1.009 IMAGING STUDIES No orders to display ED Course / Medical Decision Making MDM Number of Diagnoses or Management Options GERD (gastroesophageal reflux disease): Positive urine test: Amount and/or Complexity of Data Reviewed Clinical lab tests: ordered and reviewed Risk of Complications, Morbidity, and/or Mortality General comments: + -d dimer . Clinical Impression GERD (gastroesophageal reflux disease) (Primary) Positive urine test Disposition: Discharge LUCY Lawrence 02/27/182017 Cosigned by Joshua Cisneros MD at 2018 5:42 PM CDT * Vamsi Rice RN - 02/27/2018 7:24 PM CDT PT C/O UPPER ABDOMINAL PAIN X2 DAYS. DENIES NVD. PT REPORTS INTERMITTENT SOB AND STATES IT HURTS TO TAKE A DEEP BREATH DENIES COUGH. documented in this encounter Plan of Treatment Not on file documented as of this encounter Procedures Procedure Name Priority Date/Time Associated Diagnosis Comments D DIMER WHOLE BLOOD STAT 02/27/2018 7 :42 PM CDT TEST URINE STAT 02/27/2018 7:41 PM CDT URINALYSIS AUTO DIP STAT 02/27/2018 7 :41 PM CDT documented in this encounter Results * D DIMER WHOLE BLOOD (02/27/2018 7:42 PM CDT) D-DIMER <100 0 - 600 ng{D DU}/mL 02/27/2018 8:10 PM CDT [facility] Comment: TESTING PERFORMED ON TRAFI TRIAGE METER. NOTE: RESULTS OF THIS TEST SHOULD ALWAYS BE INTERPRETED IN CONJUNCTION WITH THE PATIENT'S MEDICAL HISTORY, CLINICAL PRESENTATION AND OTHER FINDINGS. CLINICAL DIAGNOSIS SHOULD NOT BE BASED ON THE RESULT OF D-DIMER ALONE. THE MEASUREMENT OF D-DIMER SHOULD NOT BE USED AN AID IN THE DIAGNOSIS OF VTE IN PATIENTS WITH: THERAPEUTIC DOSE ANTICOAGULANT THERAPY FOR >24HRS, FIBRINOLYTIC THERAPY WITHIN PREVIOUS 7 DAYS, TRAUMA OR SURGERY WITHIN PREVIOUS 4 WEEKS, DISSEMINATED MALIGNANCIES, AORTIC ANEURYSM, SEPSIS, SEVERE INFECTIONS, PNEUMONIA, SEVERE SKIN INFECTIONS, LIVER CIRRHOSIS OR . 02/27/2018 7:42 PM CDT us Tasha Gong AUTOMATIC SHIRRING MACHINE OPERATOR LABORATORY Final Res ult Performing Organization Address City/[facility]/ZIP Co de Phone Number [address] [address], [place] * TEST URINE (02/27/2018 7:41 PM CDT) PREG TEST POSITIVE 02/27/2018 8:00 PM CDT [facility] SPECIFIC GRAVITY (U) 1.020 >1.009 02/27/2018 8:00 PM CDT [facility] URINE SPECIMEN FROM URETHRA / Unknown 02/27/2018 7:41 PM CDT us Tasha Gong AUTOMATIC SHIRRING MACHINE OPERATOR URINE ORDERABLES Final Re sult Performing Organization Address City/[facility]/ZIP Co de Phone Number [address] [address], [place] * (ABNORMAL) URINALYSIS AUTO DIP (02/27/2018 7:41 PM CDT) SPECIMEN TYPE URINE CLEAN CATCH 02/27/2018 7:41 PM CDT [facility] COLOR (U) YELLOW 02/27/2018 7:58 PM CDT [facility] TRANSPARENCY CLEAR 02/27/2018 7:58 PM CDT [facility] SPECIFIC GRAVITY (U) 1.020 1.001 - 1.030 02/27/2018 7:58 PM CDT [facility] U PH 6.0 5.0 - 9.0 02/27/2018 7:58 PM CDT [facility] LEUKOCYTES (U) NEGATIVE NEGATIVE 02/27/2018 7:58 PM CDT [facility] NITRITES NEGATIVE NEGATIVE 02/27/2018 7:58 PM CDT [facility] PROTEIN (U) NEGATIVE <30 MG/DL 02/27/2018 7:58 PM CDT [facility] URINE GLUCOSE NEGATIVE NEGATIVE MG/DL 02/27/2018 7:58 PM CDT [facility] KETONES MG/DL (U) TRACE(A) NEGATIVE MG/DL 02/27/2018 7:58 PM CDT [facility] UROBILINOGEN 1.0(A) NEGATIVE MG/DL 02/27/2018 7:58 PM CDT [facility] BILIRUBIN (U) NEGATIVE NEGATIVE MG/DL 02/27/2018 7:58 PM CDT [facility] BLOOD (U) NEGATIVE NEGATIVE 02/27/2018 7:58 PM CDT [facility] CULTURE & SENSITIVITY INDICATED? CULTURE IS NOT INDICATED 02/27/2018 7:58 PM CDT [facility] URINE SPECIMEN OBTAINED BY CLEAN CATCH PROCEDURE / Unknown 02/27/2018 7:41 PM CDT us Tasha Gong AUTOMATIC SHIRRING MACHINE OPERATOR URINE ORDERABLES Final Re sult [place] [id number] [place] [address], [place] documented in this encounter Visit Diagnoses Diagnosis GERD (gastroesophageal reflux disease)- Primary Esophageal reflux Positive urine test (HHS/HCC) examination or test, positive result documented in this encounter
--- OUTSIDE RECORDS SUMMARY | 2024-07-07 08:52 | XMS_ITS | Encounter Summary ---
Author Organization [facility] Address Critical access hospital[address] [place] [address] [place] [address] Care Team Providers Care Veneer Drier Feeder Name Role Phone None, Provider MD Primary Care Provider Unavaila ble Reason for Visit * Reason Comments contractions every 1 -2 minutes * Auth/Cert Specialty Diagnoses / Procedures Referred By Contac t Referred To Contact Diagnoses N/A Procedures INPT Referral ID Status Reason Start Date Expiration Date Visits Re quested Visits Authorized [id number] 1 1 Encounter Details Date Type Department Care Team (Latest Contact Info) Description 03/12/2020 8:27 AM CDT - 03/14/2020 9:00 PM CDT Hospital Encounter [facility] [place] [address] Ritika Henley MD [address] [place] [phone] (contractions every 1-2 minutes) Discharge Disposition: Home or Self Care (Routine [...] Sign Reading Time Taken Comments Blood Pressure 107/69 03/14/2020 2:24 PM CDT Pulse 88 03/14/2020 7:56 AM CDT Temperature 36.9 ??C (98.4 ??F) 03/14/2020 7:56 AM CD T Respiratory Rate 14 03/14/2020 7:56 AM CDT Oxygen Saturation 99% 03/13/2020 8:15 PM CDT Inhaled Oxygen Concentration - - [...] office or shopping? No 03/12/2020 8:50 AM ELMOT Mariah Gonzalez RN Act jami * RETIRED [...] 8:50 AM ELMOT Mariah Gonzalez RN Active * Do you [...] yes Objective: Filed Vitals: 03/12/20 1731 03/12/20 19003/12/20199903/13/20 0000 BP: 122/69 133/73 Pulse: Resp: Temp: [...] CATCH COLOR (U) COLORLESS TRANSPARENCY CLEAR Specific [place] (U) 1.004 1.001 - 1.030 U PH [...] file Gets together: Not on file Attends jehovah's witness service: Not on file Active member of [...] Same as Preop Surgeon: RITIKA HENLEY MD Project Control Manager: Dr Mellisa Iglesias Anesthesia: Spinal with duramorph Procedure: Repeat Low Transverse Section Findings: Live male infant with Apgars of 8 and 9, weight [...] and clear fluid and 800ccwas appreciated, the infant's head was brought up into the incision [...] & SCREEN Routine 03/12/2020 9:08 AM CDT ([facility]HS/HCC) PATHOLOGY SLIDE CONSULT Routine 03/12/2020 8:57 AM CDT CBC W/DIFF AUTOMATED Routine 03/12/2020 8:57 AM CDT ([facility]) DRUG SCREEN RAPID STAT 03/12/2020 8:2 5 AM CDT ([facility]) HC URINALYSIS AUTO W/O MICRO STAT 03/12/2020 8:25 AM CDT ([facility]) CULTURE, GRP B STREP Routine 03/05/2020 HIV 1 ANTIGEN(S), WITH HIV-1 AND HIV-2 ANTIBODIES Routine 02/02/2020 OBSTETRIC PANEL Routine 02/02/2020 OBSTETRIC PANEL Routine 09/26/2019 HIV 1 ANTIGEN(S), WITH HIV-1 AND HIV-2 ANTIBODIES Routine 09/25/2001 SECTION PRIOR SECTION Case Notes SCHED WITH FRANKLIN ON 03/10/2020 MIKE documented in this encounter Results * (ABNORMAL) HEMOGLOBIN AND HEMATOCRIT (03/14/2020 5:26 AM CDT) HGB 8.1(L) 12.0 - 16.0 G/DL 03/14/2020 5:36 AM CDT [facility] HCT 28.1(L) 38.0 - 48.0 % 03/14/2020 5:36 AM CDT [facility] 03/14/2020 5:26 AM CDT Ritika Henley MD LABORATORY Final Result [facility] [address] [place] [address], [place] [phone] * (ABNORMAL) CBC, AUTO, NO DIFF (03/13/2020 1:10 PM CDT) [facility] Signature WBC 13.6(H) 4.5 - 11.0 x10'3/uL 03/13/2020 1:32 PM CDT [facility] RBC 3.82(L) 4.20 - 5.40 x10'6/uL 03/13/2020 1:32 PM CDT [facility] HGB 7.7(L) 12.0 - 16.0 G/DL 03/13/2020 1:32 PM CDT [facility] HCT 26.9(L) 38.0 - 48.0 % 03/13/2020 1:32 PM CDT [facility] MCV 70.4(L) 80.0 - 94.0 FL 03/13/2020 1:32 PM CDT [facility] MCH 20.2(L) 27.0 - 31.0 PG 03/13/2020 1:32 PM CDT [facility] MCHC 28.6(L) 32.0 - 36.0 G/DL 03/13/2020 1:32 PM CDT [facility] RDW 18.4(H) 11.5 - 14.5 % 03/13/2020 1:32 PM CDT [facility] PLT 133 130 - 400 x10'3/uL 03/13/2020 1:32 PM CDT [facility] MPV 10.2 9.3 - 12.2 FL 03/13/2020 1:32 PM CDT [facility] SEG NEUTROPHILS 79 % 0 2:22 PM CDT [facility] LYMPHOCYTES 12 % 03/13/2020 2:22 PM CDT [facility] MONOCYTES 5 % 03/13/2020 2:22 PM CDT [facility] EOSINOPHILS 1 % 03/13/2020 2:22 PM CDT [facility] BASOPHILS 3 % 03/13/2020 2:22 PM CDT [facility] ABS. NEUTROPHILS CALCULATED 10.74(H) 1.80 - 7.70 x10'3/uL 03/13/2020 2:22 PM CDT [facility] ABS.LYMPHOCYTES CALCULATED 1.63 1.00 - 4.80 x10'3/uL 03/13/2020 2:22 PM CDT [facility] ABS. MONOCYTES CALCULATED 0.68 0.24 - 0.86 x10'3/uL 03/13/2020 2:22 PM CDT [facility] ABS. EOSINOPHIL CALCULATED 0.14 0.04 - 0.36 x10'3/uL 03/13/2020 2:22 PM CDT [facility] ABS. BASOPHIL CALCULATED 0.41(H) 0.01 - 0.08 x10'3/uL 03/13/2020 2:22 PM CDT [facility] RBC MORPHOLOGY SLIDE REVIEWED 03/13/2020 2:22 PM CDT [facility] ANISO 1+ 03/13/2020 2:22 PM CDT [facility] HYPOCHROMASIA 1+ 03/13/2020 2:22 PM CDT [facility] MICRO 1+ 03/13/2020 2:22 PM CDT [facility] POLY 1+ 03/13/2020 2:22 PM CDT [facility] PLT EST. ADEQUATE 03/13/2020 2:22 PM CDT [facility] 03/13/2020 1:10 PM CDT us Ritika Henley MD LABORATORY Final Result [facility] [address] [place] [address], * TYPE & SCREEN (03/12/2020 9:08 AM CDT) ABO/RH O POSITIVE 03/12/2020 10:59 AM CDT [facility] ANTIBODY SCREEN NEGATIVE 03/12/2020 10:59 AM CDT [facility] SAMPLE EXPIRATION 03/15/2020,2 359 03/12/2020 10:59 AM CDT [facility] 03/12/2020 9:08 AM CDT us Ritika Henley MD BLOOD BANK TEST ORDERABLES F inal Result Performing Organization Address [facility] Co de Phone Number [facility] [address] [place] [address], [place] [phone] * PATHOLOGY SLIDE CONSULT (03/12/2020 8:57 AM CDT) CBC PATHOLOGIST COMMENT PATHOLOGIST REVIEW ADDED TO REPORT 03/16/2020 8:47 PM CDT [facility] Comment: [id number] HYPOCHROMIC MICROCYTIC ANEMIA. ??CHANGES MAY BE SEEN IN IRON DEFICIENCY AND/OR THALASSEMIA. WBC'S AND PLATELETS UNREMARKABLE. ??AGREE WITH WBC DIFFERENTIAL. REVIEWED BY DANIE MONROE M.D., PATHOLOGIST. 03/12/2020 8:57 AM CDT us Ritika Henley MD PATHOLOGY/CYTOLOGY ORDERABLE S Final Result Performing Organization Address [facility] Co de Phone Number [facility] [address] [place] [address], * (ABNORMAL) CBC W/DIFF AUTOMATED (03/12/2020 8:57 AM CDT) [facility] WBC 9.6 4.5 - 11.0 x10'3/uL 03/12/2020 10:59 AM CDT [facility] RBC 4.53 4.20 - 5.40 x10'6/uL 03/12/2020 10:59 AM CDT [facility] HGB 9.2(L) 12.0 - 16.0 G/DL 03/12/2020 10:59 AM CDT [facility] HCT 31.6(L) 38.0 - 48.0 % 03/12/2020 10:59 AM CDT [facility] MCV 69.8(L) 81.0 - 99.0 FL 03/12/2020 10:59 AM CDT [facility] MCH 20.3(L) 27.0 - 31.0 PG 03/12/2020 10:59 AM CDT [facility] MCHC 29.1(L) 32.0 - 36.0 G/DL 03/12/2020 10:59 AM CDT [facility] RDW 18.7(H) 11.5 - 14.5 % 03/12/2020 10:59 AM CDT [facility] PLT 165 130 - 400 x10'3/uL 03/12/2020 10:59 AM CDT [facility] MPV 10.5 9.3 - 12.2 FL 03/12/2020 10:59 AM CDT [facility] DIFFERENTIAL TYPE MANUAL DIFFERENTIAL 03/12/2020 11:00 AM CDT [facility] SEG NEUTROPHILS 73 % 0 11:00 AM CDT [facility] LYMPHOCYTES 19 % 03/12/2020 11:00 AM CDT [facility] ATYP. LYMPHS 1 % 03/12/2020 11:00 AM CDT [facility] MONOCYTES 7 % 03/12/2020 11:00 AM CDT [facility] NRBC 2(H) 0 /100 WBC 03/12/2020 11:00 AM CDT [facility] ABS. NEUTROPHILS CALCULATED 7.01 1.80 - 7.70 x10'3/uL 03/12/2020 11:00 AM CDT [facility] ABS.LYMPHOCYTES CALCULATED 1.92 1.00 - 4.80 x10'3/uL 03/12/2020 11:00 AM CDT [facility] ABS. MONOCYTES CALCULATED 0.67 0.24 - 0.86 x10'3/uL 03/12/2020 11:00 AM CDT [facility] ABS. NUCLEATED RBC'S 0.19(H) 0.00 - 0.01 x10'3/uL 03/12/2020 11:00 AM CDT [facility] RBC MORPHOLOGY SLIDE REVIEWED 2019 11:00 AM CDT [facility] ANISO 1+ 03/12/2020 11:00 AM T [facility] POIKLO 1+ 03/12/2020 11:00 AM T [facility] HYPOCHROMASIA 1+ 03/12/2020 11:00 AM T [facility] MICRO 1+ 03/12/2020 11:00 AM CDT [facility] POLY 1+ 03/12/2020 11:00 AM T [facility] OVALOCYTES 1+ 03/12/2020 11:00 AM T [facility] PLT EST. ADEQUATE 03/12/2020 11:00 AM T [facility] PATHOLOGIST COMMENT PATHOLOGIST REVIEW TO FOLLOW. 03/12/2020 11:00 AM T [facility] 03/12/2020 8:57 AM CDT Ritika Henley MD LABORATORY Final Result [facility] [address] [place] [address], [place] [phone] * (ABNORMAL) URINALYSIS (03/12/2020 8:25 AM CDT) SPECIMEN TYPE URINE CLEAN CATCH 03/12/2020 8:47 AM CDT [facility] COLOR (U) COLORLESS 03/12/2020 9:37 AM CDT [facility] TRANSPARENCY CLEAR 03/12/2020 9:37 AM CDT [facility] SPECIFIC GRAVITY (U) 1.004 1.001 - 1.030 03/12/2020 9:37 AM CDT [facility] U PH 6.5 5.0 - 9.0 03/12/2020 9:37 AM CDT [facility] LEUKOCYTES (U) 250(A) NEGATIVE 03/12/2020 9:37 AM CDT [facility] NITRITES NEGATIVE NEGATIVE 03/12/2020 9:37 AM CDT [facility] PROTEIN (U) NEGATIVE <30 MG/DL 03/12/2020 9:37 AM CDT [facility] URINE GLUCOSE NORMAL NORMAL MG/DL 03/12/2020 9:37 AM CDT [facility] KETONES MG/DL (U) NEGATIVE NEGATIVE MG/DL 03/12/2020 9:37 AM CDT [facility] UROBILINOGEN NORMAL NORMAL MG/DL 03/12/2020 9:37 AM CDT [facility] BILIRUBIN (U) NEGATIVE NEGATIVE MG/DL 03/12/2020 9:37 AM CDT [facility] BLOOD (U) NEGATIVE NEGATIVE 03/12/2020 9:37 AM CDT [facility] WBC/HPF 2 <6 /HPF 03/12/2020 9:37 AM CDT [facility] RBC/HPF 2 <6 /HPF 03/12/2020 9:37 AM CDT [facility] BACTERIA (U) RARE(A) NONE /HPF 03/12/2020 9:37 AM CDT [facility] SQUAMOUS EPITHELIALS RARE /HPF 03/12/2020 9:37 AM CDT [facility] URINE SPECIMEN OBTAINED BY CLEAN CATCH PROCEDURE / Unknown 03/12/2020 8:25 AM CDT us Ritika Henley MD URINE ORDERABLES Final Resul t [facility] [address] [place] [address], * (ABNORMAL) DRUG SCREEN RAPID (03/12/2020 8:25 AM CDT) AMPHETAMINE (U) NEGATIVE NEGATIVE 0 9:32 AM CDT [facility] BARBITURATES SCREEN (U) NEGATIVE NEGATIVE 03/12/2020 9:32 AM CDT [facility] BENZODIAZEPINES SCREEN (U) NEGATIVE NEGATIVE 03/12/2020 9:32 AM CDT [facility] CANNABINOIDS SCREEN (U) NEGATIVE NEGATIVE 03/12/2020 9:32 AM CDT [facility] COCAINE METABOLITES (U) NEGATIVE NEGATIVE 03/12/2020 9:32 AM CDT [facility] METHADONE (U) NEGATIVE NEGATIVE 03/12/2020 9:32 AM CDT [facility] OPIATE SCREEN (U) NEGATIVE NEGATIVE 020 9:32 AM CDT [facility] PHENCYCLIDINE PCP (U) NEGATIVE NEGATIVE 03/12/2020 9:32 AM CDT [facility] Comment: NOTE: RESULTS OF THIS DRUG [...] - 217 MG/DL 03/12/2020 9:32 AM CDT [facility] Urine specimen (specimen) URINE SPECIMEN / Unknown 03/12/2020 8:25 AM CDT Ritika Henley MD URINE ORDERABLES Final Resul t [facility] [address] [place] [address], * CULTURE, GRP B STREP (03/05/2020) CULTURE GBS Positive us Doc [facility] MICROBIOLOGY - GENERAL ORDER OFELIA Final Result * OBSTETRIC PANEL (02/02/2020) SYPHILIS IGG AB Non-Reacti ve us Doc [facility] LABORAT[facility] Final Result * HIV 1 ANTIGEN(S), WITH HIV-1 AND HIV-2 ANTIBODIES (02/02/2020) HIV 1/2 AB+ HIV1 P24 AG Non-Reacti ve us Doc [facility] Final Result * OBSTETRIC PANEL (09/26/2019) HEPATITIS B SURFACE AG Non-Reactiv e RUBELLA IGG AB Immune SYPHILIS IGG AB Non-Reactiv e us Doc [facility] Final Result * HIV 1 ANTIGEN(S), WITH HIV-1 AND HIV-2 ANTIBODIES (09/25/2001) HIV 1/2 AB+ HIV1 P24 AG Non-Reacti ve us Doc [facility] Final Result documented in this encounter Visit Diagnoses Diagnosis ([facility]/HCC) state, incidental 38 weeks gestation of ([facility]/HCC) state, incidental documented in this encounter Administered Medications Inactive Administered Medications - up to 3 most recent administrations Medication Order MAR Action Action Date Dose Rate Site citric acid-sodium citrate (BICITRA) 500-334 MG/5ML oral solution 1 dose, Starting on Sun03/12/20 at 1321, Until Sun03/12/20 at 1324, Created by cabinet override citric acid-sodium citrate (BICITRA) oral solution 30 mL 30 mL, Oral, order desk caller to O.R., 1 dose, First dose (after last modification) on Sun03/12/20 at 1415, Sodium citrate-citric acid oral solution should be diluted with water or juice prior to oral administration. May follow with additional water after swallowing mixture, if desired., Pre-Op Given 03/12/2020 1:24 PM CDT 30 mLs clindamycin (CLEOCIN) 900 mg in sodium chloride 0.9 % 50 mL IVPB 900 mg, Intravenous, at 100 mL/hr, Every 8 hours, 2 doses, First dose on 03/13/20 at 0730, Last dose on 03/13/20 at 1530, Post-Op New Bag 03/13/2020 6:11 PM CDT 900 mg 100 mL/hr New Bag 03/13/2020 9:30 AM CDT 900 mg 100 mL/hr diphenhydrAMINE (BENADRYL) injection 12.5 mg 12.5 mg, Intravenous, Every 4 hours PRN, Itching, Starting on Sun03/12/20 at 1423, Until 03/13/20 at 0717, For IV administration, give no faster than 25 mg/min., Post-Op Given 03/13/2020 2:56 AM CDT 12.5 mg Given 03/12/2020 10:51 PM CDT 12.5 mg Given 03/12/2020 6:20 PM CDT 25 mg famotidine (PEPCID) 20 MG/2ML injection 1 dose, Starting on Sun03/12/20 at 1321, Until Sun03/12/20 at 1324, Created by cabinet override IV Push over 2 minutes famotidine (PEPCID) injection 20 mg 20 mg, Intravenous, order desk caller to O.R., 1 dose, First dose on Sun03/12/20 at 1400, 30 minutes prior to surgery IV Push over 2 minutes, Pre-Op Given 03/12/2020 1:24 PM CDT 20 mg gentamicin (GARAMYCIN) 500 mg in sodium chloride 0.9 % 100 mL IVPB 500 mg, Intravenous, at 100 mL/hr, Once, 1 dose, On 03/13/20 at 0730, 5 mg/kg actual body weight per SCIP, pharmacy to dose aminoglycoside, Post-Op New Bag 03/13/2020 10:15 AM CDT 500 mg 100 mL /hr ibuprofen (MOTRIN) tablet 600 mg 600 mg, Oral, Every 6 hours PRN, Mild pain (Scale 1 - 3), Starting on 03/13/20 at 2130, Until Sun03/14/20 at 2306 Given 03/14/2020 7:44 PM CDT 600 mg Given 03/14/2020 10:24 AM CDT 600 mg Given 03/14/2020 5:21 AM CDT 600 mg iron dextran complex (INFED) 25 mg in sodium chloride 0.9 % 50 mL IVPB 25 mg, Intravenous, Administer over 15 Minutes, Once, 1 dose, On 03/14/20 at 1215, Monitor BP and observe of anaphylaxis. New Bag 03/14/2020 2:02 PM CDT 25 mg 200 mL/ hr iron dextran complex (INFED) 975 mg in sodium chloride 0.9 % 250 mL IVPB 975 mg, Intravenous, Administer over 2 Hours, Once, 1 dose, On Sun03/14/20 at 1215, Monitor BP and observe for anaphylaxis. Give no faster than 50 mg/min. New Bag 03/14/2020 4:38 PM CDT 975 mg 125 mL/h r ketorolac (TORADOL) injection 30 mg 30 mg, Intravenous, Every 6 hours, 20 doses, First dose on Sun03/12/20 at 1845, Last dose on Sun03/17/20 at 1400, For IV administration, give over 15 seconds. Given 03/13/2020 3:26 PM CDT 30 mg Given 03/13/2020 9:19 AM CDT 30 mg Given 03/13/2020 2:05 AM CDT 30 mg lactated ringers bolus infusion 250 mL 250 mL, Intravenous, Administer over 15 Minutes, Once as needed, for SBP less than 90, 2 doses, Starting on Sun03/12/20 at 1815, Until Sun03/14/20 at 2306, during first 24 hours post Intrathecal narcotic, may repeat x1 if symptoms unresolved lactated ringers bolus infusion 999 mL 999 mL, Intravenous, Administer over 60 Minutes, Once, 1 dose, On Sun03/12/20 at 0915 New Bag 03/12/2020 9:08 AM CDT 999 mLs lactated ringers infusion at 150 mL/hr, Intravenous, Continuous, Starting on Sun03/12/20 at 1530, Until Sun03/13/20 at 1840, Pre-Op New Bag 03/12/2020 9:27 PM CDT 150 mL/hr New Bag 03/12/2020 1:41 PM CDT methylergonovine (METHERGINE) injection 0.2 mg 0.2 mg, Intramuscular, Once, 1 dose, On Sun03/12/20 at 1500, HAZARDOUS MEDICATION Given 03/12/2020 2:57 PM CDT 0.2 mg Right Anterior Thigh metoclopramide (REGLAN) 5 MG/ML injection 1 dose, Starting on Sun03/12/20 at 1321, Until Sun03/12/20 at 1324, Created by zoraida mcclain metoclopramide (REGLAN) injection 10 mg 10 mg, Intravenous, order desk caller to O.R., 1 dose, First dose on Sun03/12/20 at 1400, 30 minutes prior to surgery, Pre-Op Given 03/12/2020 1:24 PM CDT 10 mg metoclopramide (REGLAN) injection 10 mg 10 mg, Intravenous, Every 6 hours PRN, Nausea, Vomiting, Starting on Sun03/12/20 at 1815, Until Sun03/14/20 at 2306, If ondansetron (ZOFRAN) ineffective miSOPROStol (CYTOTEC) tablet 1,000 mcg 1,000 mcg, Rectal, Once, 1 dose, On Sun03/12/20 at 1500 Given by Other 03/12/2020 2:57 PM CDT 1,000 mcg morphine injection 1 mg 1 mg, Intravenous, [...] 10), Starting on 03/13/20 at 1400, Until Sun03/14/20 at 2306, Maximum dose of acetaminophen is [...] solution 30 mL (COMPLETED) 30 mL, Oral, order desk caller to O.R., 1 dose, First dose (after last modification) on Sun03/12/20 at 1415, Sodium citrate-citric acid oral solution should be diluted with water or juice prior to oral administration. May follow with additional water after swallowing mixture, if desired., Pre-Op 1324 (Given - Provider: Melony Haines RN) clindamycin (CLEOCIN) 900 mg in sodium chloride [...] injection 20 mg (COMPLETED) 20 mg, Intravenous, order desk caller to O.R., 1 dose, First dose on Sun03/12/20 at 1400, 30 minutes prior to surgery IV Push over 2 minutes, Pre-Op 1324 (Given - Provider: Melony Haines RN) gentamicin (GARAMYCIN) 500 mg in sodium chloride [...] over 15 Minutes, Once, 1 dose, On 03/14/20 at 1215, Monitor BP and observe of [...] Reena Crane RN)0919 (Given - Provider: Kathie Gregory, NIMCO)1526 (Given - Provider: Kathie Gregory RN) lactated [...] HAZARDOUS MEDICATION 1457 (Given - Provider: Mariah Gonzalez RN) metoclopramide (REGLAN) injection 10 mg (COMPLETED) 10 mg, Intravenous, order desk caller to O.R., 1 dose, First dose on [...] at 2306 2349 (Given - Provider: Justine Markham, NIMCO) 0521 (Given - Provider: Justine Markham, RN)1024 (Given - Provider: Kathie Gregory RN)1944 (Given - Provider: Cindy Fuchs RN) lactated ringers bolus infusion 250 mL 250 mL, Intravenous, Administer over 15 Minutes, Once as needed, for SBP less than 90, 2 doses, Starting on Sun03/12/20 at 1815, Until Sun03/14/20 at 2306, during first 24 hours post Intrathecal narcotic, may repeat x1 if symptoms unresolved magnesium hydroxide (MILK OF MAGNESIA) 400 MG/5ML suspension 30 mL 30 mL, Oral, 2 times daily PRN, Constipation, Starting on 03/13/20 at 0717, Until 03/14/20 at 2306, Shake Well, Post-Op ytmvumzza-mznrcbka-qgnvz hicone (MYLANTA MAXIMUM STRENGTH) 0279-0859-988 mg/30mL suspension 10 mL, Oral, Every 4 hours PRN, Indigestion, Heartburn, Starting on Sun03/13/20 at 0717, Until Sun03/14/20 at 2306, Shake Well, Post-Op metoclopramide (REGLAN) injection 10 mg 10 mg, Intravenous, Every 6 hours PRN, Nausea, Vomiting, Starting on Sun03/12/20 at 1815, Until Sun03/14/20 at 2306, If ondansetron (ZOFRAN) ineffective morphine [...] 2306, Post-Op 2349 (Given - Provider: Justine Markham, NIMCO) 0557 (Given - Provider: Justine Markham RN) oxyCODONE-acetaminophen (PERCOCET) 5-325 MG tablet 1 tablet 1 tablet, Oral, Every 4 hours PRN, Severe pain (Scale 8 - 10), Starting on 03/13/20 at 1400, Until 03/14/20 at 2306, Maximum dose of acetaminophen is 4000 mg from all sources in 24 hours., Post-Op 1944 (Given - Provider: Cindy Fuchs RN) simethicone (MYLICON) chewable tablet 80 mg 80 [...] Pre-Op documented in this encounter Care Teams Veneer Drier Feeder Relationship Specialty Start Date End Date None, Provider, PCP - General 07/16/18 03/13/20 documented as of this encounter
--- OUTSIDE RECORDS SUMMARY | 2024-07-07 08:57 | XMS_ITS | Data Portability ---
Author Organization [facility] , [facility] Address [address] [place] [address] Care Team Providers Care Mitering Machine Operator Name Role Phone [facility] Ophthalmic Technologist Assessment No assessment recorded. Plan of Treatment Reminders Order Date Submit Date Provider Last Modified By Organization Details Last Modified Time Details Appointments None record ed. Lab None record ed. Referral None record ed. Procedures None record ed. Surgeries None record ed. Imaging None record ed. Medication Orders None record ed. Patient TargetsNo targets recorded. Patient InstructionsNo instructions recorded. Reason for Referral None Reported. Problems Name Problem SNOMED Code Status Onset Date Resolution Date Notes Provider Name and Address Organization Details Recorded Time Abnormal glucose toleranc e in mother complica ting pregnanc y, childbir th AND/OR puerperi [id number] Completed 201803/10/2020 Abnormal glucose complica ting pregnanc y; Progress : Stable Added By: Cyndie Erwin Add to Current Problems : NO ProblemS tatus: Resolve Not Available [facility] 2 22:05:16 Gestatio n period, 40 weeks [id number] Completed 201702/27/2019 40 weeks gestatio n of pregnanc y; Severity : Moderate Progress : Stable Added By: Aleena Brown Add to Current Problems : NO ProblemS tatus: Resolve Not Available [facility] 1 20:07:13 Gestatio n period, 28 weeks 25010615 Completed 201803/05/2020 28 weeks gestatio n of pregnanc y; Progress : Stable Added By: Justine Mukherjee Add to Current Problems : NO ProblemS tatus: Resolve Not Available [facility] 2 22:05:[address] Concept Completed 201708/03/2018 Encounte r for follow-u p examinat ion after complete d treatmen t for conditio ns other than malignan t neoplasm ; Progress : Stable Added By: Jody Godoy Add to Current Problems : NO ProblemS tatus: Resolve Not Available [facility] 2 22:05:14 Steriliz ation procedur e Completed 201902/11/2021 Encounte r for steriliz ation; Progress : Stable Added By: Cj Leggett Add to Current Problems : NO ProblemS tatus: Resolve Not Available [facility] 2 22:05:12 Gestatio n period, 20 weeks [id number] Completed 201903/05/2020 20 weeks gestatio n of pregnanc y; Progress : Stable Added By: Natasha Nunes Add to Current Problems : NO ProblemS tatus: Resolve Not Available [facility] 2 22:05:18 Gestatio n period, 37 weeks [id number] Completed 201903/26/2020 37 weeks gestatio n of pregnanc y; Progress : Stable Added By: Gualberto Eastman Add to Current Problems : NO ProblemS tatus: Resolve Not Available [facility] 2 22:05:18 Impaired glucose toleranc e 7545506 Completed 201703/05/2020 Abnormal glucose toleranc e test (oral); Location : None Progress : Stable Added By: Teodora Carolina Add to Current Problems : YES ProblemS tatus: Current Impaired glucose toleranc e (oral); Progress : Stable Added By: Teodora Carolina Add to Current Problems : NO ProblemS tatus: Resolve Not Available [facility] 2 22:05:11 Excessiv e growth affectin g manageme nt of mother 71099394 Completed 201711/17/2017 Large for dates; Location : None Progress : Stable Added By: Radha Erwin Add to Current Problems : YES ProblemS tatus: Resolve Not Available [facility] 2 22:05:17 Gestatio n period, 36 weeks [id number] Completed 201803/10/2020 36 weeks gestatio n of pregnanc y; Progress : Stable Added By: Teodora Carolina Add to Current Problems : NO ProblemS tatus: Resolve Not Available [facility] 2 22:05:15 Normal pregnanc y in xochiltgra tevin [id number] 4106 Completed 201903/05/2020 Encounte r for supervis ion of other normal pregnanc y, first trimeste r; Progress : Stable Added By: Robert Green Add to Current Problems : NO ProblemS tatus: Resolve Encounte r for supervis ion of other normal pregnanc y, second trimeste r; Progress : Stable Added By: Candice Solorzano Add to Current Problems : NO ProblemS tatus: Resolve; Start Date : 07/16/19 18 Encou nter for supervis ion of other normal pregnanc y, third trimeste r; Progress : Stable Added By: Gualberto Eastman Add to Current Problems : NO ProblemS tatus: Resolve; Start Date : 07/19/19 19 Not Available [facility] 2 22:05:19 Gestatio n period, 32 weeks [id number] Completed 201803/05/2020 32 weeks gestatio n of pregnanc y; Progress : Stable Added By: Shari Valenzuela Add to Current Problems : NO ProblemS tatus: Resolve Not Available [facility] 2 22:05:17 Gestatio n period, 35 weeks [id number] Completed 201803/05/2020 35 weeks gestatio n of pregnanc y; Progress : Stable Added By: Janet Copeland Add to Current Problems : NO ProblemS tatus: Resolve Not Available [facility] 2 22:05:11 Uterine size for dates discrepa ncy Completed 201703/10/2020 Uterine size-mary e discrepa ncy, third trimeste r; Progress : Stable Added By: Cj Leggett Add to Current Problems : NO ProblemS tatus: Resolve Not Available [facility] 2 22:05:10 Lochia finding Completed 201902/11/2021 Encounte r for routine postpart um follow-u p; Progress : Stable Added By: Maximo Swanson Add to Current Problems : NO ProblemS tatus: Resolve Not Available [facility] 2 22:05:14 Sampling of vagina for Papanico laou smear Active 2018 Encounte r for gynecolo gical examinat ion (general ) (routine ) without abnormal findings ; Severity : Moderate Progress : Stable Added By: Teodora Carolina Add to Current Problems : YES ProblemS tatus: Current Not Available [facility] 1 20:07:15 Procedur e on genitour inary system Completed 201802/11/2021 Encounte r for surgical aftercar e followin g surgery on the genitour inary system; Progress : Stable Added By: Wanda Infante Add to Current Problems : NO ProblemS tatus: Resolve Not Available [facility] 2 22:05:10 Postoper ative care Completed 201802/11/2021 Encounte r for surgical aftercar e followin g surgery on the genitour inary system; Progress : Stable Added By: Wanda Infante Add to Current Problems : NO ProblemS tatus: Resolve Not Available [facility] 2 22:05:11 Gestatio n period, 38 weeks [id number] Completed 201803/05/2020 38 weeks gestatio n of pregnanc y; Progress : Stable Added By: Sravanthi Barlow Add to Current Problems : NO ProblemS tatus: Resolve Not Available [facility] 2 22:05:13 Glucose toleranc e test outside referenc e range 163836458 Completed 201709/26/2019 Abnormal glucose toleranc e test (oral); Progress : Stable Added By: Teodora Carolina Add to Current Problems : NO ProblemS tatus: Resolve Not Available [facility] 2 22:05:15 Gestatio n period, 27 weeks 81440244 Completed 201903/05/2020 27 weeks gestatio n of pregnanc y; Progress : Stable Added By: Candice Solorzano Add to Current Problems : NO ProblemS tatus: Resolve Not Available [facility] 2 22:05:12 Gestatio n period, 30 weeks [id number] Completed 201803/05/2020 30 weeks gestatio n of pregnanc y; Progress : Stable Added By: Makenzie Vo Add to Current Problems : NO ProblemS tatus: Resolve Not Available [facility] 2 22:05:[address] Concept Completed 201711/17/2017 Maternal care for excessiv e growth, unspecif ied trimeste r, not applicab le or unspecif ied; Progress : Stable Added By: Radha Erwin Add to Current Problems : NO ProblemS tatus: Resolve Not Available [facility] 2 22:05:14 Acute vaginiti s 89432890 Completed 201903/05/2020 Acute vaginiti s; Progress : Stable Added By: Amy Rogers i Add to Current Problems : NO ProblemS tatus: Resolve Not Available [facility] 2 22:05:17 Gestatio n period, 13 weeks [id number] Completed 201903/05/2020 13 weeks gestatio n of pregnanc y; Progress : Stable Added By: Robert Green Add to Current Problems : NO ProblemS tatus: Resolve Not Available [facility] 2 22:05:[address] Concept Completed 201903/05/2020 Encounte r for supervis ion of normal pregnanc y, unspecif ied, second trimeste r; Progress : Stable Added By: Nena Calderon Add to Current Problems : NO ProblemS tatus: Resolve Not Available [facility] 2 22:05:14 Gestatio n period, 34 weeks 89583691 Completed 201803/05/2020 34 weeks gestatio n of pregnanc y; Progress : Stable Added By: Janet Copeland Add to Current Problems : NO ProblemS tatus: Resolve Not Available [facility] 2 22:05:15 Surgical follow-u p - normal [id number] Completed 201708/03/2018 Follow-u p exam followin g surgery; Location : None Severity : Moderate Progress : Stable Added By: Jody Godoy Add to Current Problems : YES ProblemS tatus: Resolve Not Available [facility] 1 20:07:18 Gestatio n period, 24 weeks 732870993 Completed 201703/05/2020 24 weeks gestatio n of pregnanc y; Progress : Stable Added By: Rachael Petty Add to Current Problems : NO ProblemS tatus: Resolve Not Available [facility] 2 22:05:15 Abnormal uterine bleeding [id number] 100 Active 2020 Other specifie d abnormal uterine and vaginal bleeding ; Progress : Stable Added By: Teodora Carolina Add to Current Problems : YES ProblemS tatus: Current Not Available [facility] 2 22:05:11 Depressi on screenin g Completed 201802/11/2021 Encounte r for screenin g for maternal depressi on; Progress : Stable Added By: Maximo Swanson Add to Current Problems : NO ProblemS tatus: Resolve Not Available [facility] 2 22:05:11 Gestatio n period, 40 weeks [id number] Completed 201702/27/2019 Antenata l screenin g; unspecif ied; Location : None Progress : Stable Added By: Aleena Brown Add to Current Problems : YES ProblemS tatus: Resolve Antenata l screenin g; unspecif ied; Location : None Progress : Stable Added By: Radha Erwin Add to Current Problems : YES ProblemS tatus: Resolve; Start Date : 07/16/19 40 weeks gestatio n of pregnanc y; Progress : Stable Added By: Aleena Brown Add to Current Problems : NO ProblemS tatus: Resolve; Start Date : 07/16/19 18 Not Available [facility] 2 22:05:12 Antenata l screenin g for malforma tion Completed 201903/10/2020 Encounte r for antenata l screenin g for malforma tions; Progress : Stable Added By: Natasha Nunes Add to Current Problems : NO ProblemS tatus: Resolve Not Available [facility] 2 22:05:12 anatomy study Active 2017 Encounte r for anatomic survey; Location : None Progress : Stable Added By: Aleena Brown Add to Current Problems : YES ProblemS tatus: Current Not Available [facility] 2 22:05:13 Antenata l screenin g Completed 201903/10/2020 Encounte r for antenata l screenin g of mother; Progress : Stable Added By: Aleena Brown Add to Current Problems : NO ProblemS tatus: Resolve; Start Date : 05/28/20 18 Encou nter for antenata l screenin g for Streptoc occus B; Progress : Stable Added By: Teodora Carolina Add to Current Problems : NO ProblemS tatus: Resolve Encounte r for other specifie d antenata l screenin g; Progress : Stable Added By: Gualberto Eastman Add to Current Problems : NO ProblemS tatus: Resolve; Start Date : 05/28/20 18 Not Available [facility] 2 22:05:16 Normal pregnanc y 91751581 Active 2017 Medical visit for normal pregnanc y; Location : None Progress : Stable Added By: Aleena Brown Add to Current Problems : YES ProblemS tatus: Current Not Available [facility] 2 22:05:16 Screenin g for malignan t neoplasm of cervix Completed 201803/05/2020 Encounte r for screenin g for malignan t neoplasm of cervix; Progress : Stable Added By: Janet Copeland Add to Current Problems : NO ProblemS tatus: Resolve Not Available [facility] 2 22:05:18 Postoper ative follow-u p visit Completed 201708/03/2018 Follow-u p exam followin g surgery; Location : None Progress : Stable Added By: Jody Godoy Add to Current Problems : YES ProblemS tatus: Resolve Not Available [facility] 2 22:05:18 Notes:Encounter for an atomic survey (V28.81) ; OnsetDate: 05/28/2018; ResolvedDate: 09/26/2019; Progress: Stable Added By: Aleena Brown Add to Current Problems: NO ProblemStatus: Resolve Medical visit for normal (V22.1) ; OnsetDate: 07/16/2017; ResolvedDate: 09/26/2019; Progress: Stable Added By: Aleena Brown Add to Current Problems: NO ProblemStatus: Resolve Problem Notes None recorded. Procedures Surgical History Date Name Laterality Status Provider Name and Address Organization Details Recorded Time 0 total excision of bilateral fallopian tubes completed [facility] [place] [facility] 06/06/2021 13:02:51 0 section completed [facility] [place] [facility] 06/06/2021 13:00:55 0 Date of Last Pap Smear completed [facility] [place] [facility] 06/06/2021 12:55:34 9 section completed [facility] [place] [facility] 06/06/2021 13:00:41 8 section completed [facility] [place] [facility] 06/06/2021 13:00:29 5 section completed [facility] [place] [facility] 06/06/2021 13:00:09 Imaging Results None recorded. Procedure Notes None recorded. Medical Equipment None Reported. Allergies Allergen ID Allergen Name Allergen Category Reaction Reaction Severity Criticality Documentation Date Start Date Code Code System Note Provider Name and Address Organization Details Recorded Time 089397 Medicinal product containin g penicilli n and acting as antibacte rial agent (product) medicatio n Not available Not available Not available 04/29/20212017 96246 05 SNOMED Sever ity: Moder ate; Not Available [facility] 01:04:09 Medications Name Sig Start Date Stop Date Status Note LastModified by Organization Details LastModified Time cyclobenz aprine 10 mg tablet TAKE 1 TABLET BY MOUTH EVERYDAY AT BEDTIME active Not Available Not Available No t Available metronida zole 500 mg tablet TAKE 1 TABLET BY MOUTH TWICE A DAY active Not Available Not Available No t Available Zantac 150 mg tablet Take 1 tablet(s ) by mouth at bedtime 11/22 completed Zantac 150mg Tablet RxNorm: 745219 Allow Substitu tion: True Refill Denied: No Not Available Not Available Not Available Vitamin tablet 09/25 completed Multivit ny RxNorm: 0 Allow Substitu tion: True Refill Denied: No Refill Note: No cancel reason selected Refill DateOccu rred: 09/17/19 19 Not Available Not Available Not Available ferrous sulfate 325 mg (65 mg iron) tablet take 1 tablet (325 mg) by oral route 2 times per day 03/26 completed ferrous sulfate 325 mg (65 mg iron) oral tablet RxNorm: 863983 Allow Substitu tion: True Refill Denied: No Edited by: Wanda Proctor) on 03/26/20 Stopped by: maribel( Wanda Infante) on 03/26/20 20 Not Available Not Available Not Available sertralin e 50 mg tablet take 1 tablet (50 mg) by oral route once daily 02/11 completed sertrali ne 50 mg oral tablet RxNorm: 626105 Allow Substitu tion: True Refill Denied: No Edited by: esa (Mai Terrazas ) on 02/12/20 Stopped by: Mai Nuñez ) on 02/12/20 Not Available Not Available Not Available naproxen 500 mg tablet TAKE 1 TABLET BY MOUTH TWICE A DAY active Not Available Not Available No t Available medroxypr ogesteron e 150 mg/mL intramusc ular syringe inject 1 millilit er (150 mg) by intramus cular route once today 08/29 completed medroxyP [place] one 150 mg/mL intramus cular Syringe RxNorm: 7358894 Allow Substitu tion: True Refill Denied: No Edited by: nilton(R eyes, Teodora ) on 02/12/20 Stopped by: nilton(R eyes, Teodora ) on Not Available Not Available Not Available Folgard RX 2.2 mg-25 mg-1 mg tablet Take 1 tablet(s ) by mouth daily 12/17 completed FolgardR X 2.2mg/25 mg/1mg Tablet RxNorm: [id number] Allow Substitu tion: True Refill Denied: No Not Available Not Available Not Available Gummies 03/26 completed Gummies Allow Substitu tion: False Refill Denied: No Refill DateOccu rred: 12/31/19 Edited by: Wanda Proctor) on 09/18/20 20 Stopped by: jermaine Wanda Infante) on 03/26/20 20 Not Available Not Available Not Available Vitals Date Recorded Body height Body mass index (BMI) Body weight Provider Name and Address Organization Details Last Updated DateTime 08/29/2021 165.1 cm 33.4 kg/m2 08194.07 g Zofia Ziegler [place] [employer] [facility] 08/29/2021 17:45:01 Social History Question Answer Notes LastModified by Organizat ion Details LastModified Time Tobacco Smoking Status Never Smoker Candice Hsu null, [place] [employer] [facility] 06/06/2021 12:59:40 What Is Your Level Of Alcohol Consumption? None Information not available 06/06/2021 Are You Blind Or Do You Have Difficulty Seeing? No [email or web address] Information not available 01/01/2023 Are You Deaf Or Do You Have Serious Difficulty Hearing? No [email or web address] Information not available 01/01/2023 Are You Sexually Active? Yes Information not available 06/06/2021 Do You Use Any Illicit Or Recreational Drugs? No Information not available 06/06/2021 Sex: Female Functional Status None recorded. Mental Status None recorded. Family History Relationship Description Onset Age of this Age Resolved Age Notes LastModified by Organization Details LastModified Time Mother Hypertensive disorder [email or web address] Not available 2020 12:57:38 Mother Myocardial infarction [email or web address] Not available 06/06 12:57:47 Mother Type 2 diabetes mellitus hkarcher Not available 2020 12:58:30 Unspecified Relation Malignant tumor of breast Fathe r's side [email or web address] Not available 06/06/2021 12:58:10 Medical History No medical history recorded. Gynecological History Statement/Question Response Date of Last Colonoscopy Most Recent Bone Density Date of Last Pap Smear 09/26/2019 Most Recent Mammogram Current Control Method Tubal Ligat ion Age at Menarche 13 Obstetrics History GPAL:G 4 P 4 0 0 4 Type Value Full Term 4 Living 4 Total 4 Past Encounters Encounter ID Performer Location Encounter Start Date Encounter Closed Date Diagnosis/Indication Diagnosis SNOMED-CT Code Diagnosis ICD10 Code [id number] Ricardo Gonzáles DO [facility] [address] [facility] [place] [address] 08/29/2021 17:24:47 08/30/2021 10:24:33 Family planning education [id number] Z30.02 Health Concerns Section Related Observation LastModified by Organization Detai ls LastModified Time None Recorded Concern Status LastModified by Organization Details LastModified Time None Recorded Advance Directives Directive None Recorded Payers None recorded. Notes Date Note Type Note Provider Name and Address Organization Details Recorded Time 08/29/2021 text/html Pt here to discu ss tubal reversal. Bilateral Salpingectomy was performed by Dr Leggett 05-14-2020 Ricardo Gonzáles, DO [address] [facility], [place], [address], [facility] [id number] 08/29/2021 17:47:32 OBGyn Episode Ob Episode Information Episode Created Date Number of Fetuses Patient Bloodtype Patient rh Status Prepregnancy Weight lbs Domestic Partner Domestic Partner Phone Father Name Party Plan Selling Distributor Status 09/23/19 1 CLOSED Fetus Data First Name Last Name Admitted to NICU Weight (g) Sex Living Outcome Pediatric Complications Fetus ID Race Codes Race Delivery Type 3628.73 6 M [id number] Sumanth Calculation SUMANTH Calculation Method Initial Sumanth Date Initial Exam Date Initial Exam Provider Initial Ultrasound Date Last Menstrual Period Date Ultra Sound Weeks Gestation Conception by IVF Embryo Age at Transfer Date of Transfer 0 Eighteen To Twenty Week Sumanth Update Ultra Sound Date Fundal Height At Umbil Quickening Date Ultra Sound Latest Weeks Gestation Final Sumanth Confirmed By Final Sumanth Confirmed Date Final Sumanth Date Ultra Sound Latest Days Gestation 0 0 Menstrual History Last Menstrual Date Menses Monthly On Bcp Conception Prior Menses Frequency Hcg Plus Date Menarche Onset Age Delivery Information Delivery Date Delivery Type Labor Anesthesia Weeks Gestation Incision Type Labor Labor Length Hrs Delivered By Post Complications Tubal Sterilization Discharge Date Comments 5 280 false Comments : Macrosomi a Discharge Information Feeding Method Contraceptive Method Maternal HG B and HCT Levels Ob Episode Information Episode Created Date Number of Fetuses Patient Bloodtype Patient rh Status Prepregnancy Weight lbs Domestic Partner Domestic Partner Phone Father Name Party Plan Selling Distributor Status 09/23/19 22 1 CLOSED Fetus Data First Name Last Name Admitted to NICU Weight (g) Sex Living Outcome Pediatric Complications Fetus ID Race Codes Race Delivery Type 3628.73 6 F [id number] Sumanth Calculation SUMANTH Calculation Method Initial Sumanth Date Initial Exam Date Initial Exam Provider Initial Ultrasound Date Last Menstrual Period Date Ultra Sound Weeks Gestation Conception by IVF Embryo Age at Transfer Date of Transfer 0 Eighteen To Twenty Week Sumanth Update Ultra Sound Date Fundal Height At Umbil Quickening Date Ultra Sound Latest Weeks Gestation Final Sumanth Confirmed By Final Sumanth Confirmed Date Final Sumanth Date Ultra Sound Latest Days Gestation 0 0 Menstrual History Last Menstrual Date Menses Monthly On Bcp Conception Prior Menses Frequency Hcg Plus Date Menarche Onset Age Delivery Information Delivery Date Delivery Type Labor Anesthesia Weeks Gestation Incision Type Labor Labor Length Hrs Delivered By Post Complications Tubal Sterilization Discharge Date Comments 8 286 false Discharge Information Feeding Method Contraceptive Method Maternal HG B and HCT Levels Ob Episode Information Episode Created Date Number of Fetuses Patient Bloodtype Patient rh Status Prepregnancy Weight lbs Domestic Partner Domestic Partner Phone Father Name Party Plan Selling Distributor Status 09/23/19 22 1 CLOSED Fetus Data First Name Last Name Admitted to NICU Weight (g) Sex Living Outcome Pediatric Complications Fetus ID Race Codes Race Delivery Type 4082.32 8 M [id number] Sumanth Calculation SUMANTH Calculation Method Initial Sumanth Date Initial Exam Date Initial Exam Provider Initial Ultrasound Date Last Menstrual Period Date Ultra Sound Weeks Gestation Conception by IVF Embryo Age at Transfer Date of Transfer 0 Eighteen To Twenty Week Sumanth Update Ultra Sound Date Fundal Height At Umbil Quickening Date Ultra Sound Latest Weeks Gestation Final Sumanth Confirmed By Final Sumanth Confirmed Date Final Sumanth Date Ultra Sound Latest Days Gestation 0 0 Menstrual History Last Menstrual Date Menses Monthly On Bcp Conception Prior Menses Frequency Hcg Plus Date Menarche Onset Age Delivery Information Delivery Date Delivery Type Labor Anesthesia Weeks Gestation Incision Type Labor Labor Length Hrs Delivered By Post Complications Tubal Sterilization Discharge Date Comments 9 274 false Discharge Information Feeding Method Contraceptive Method Maternal HG B and HCT Levels Ob Episode Information Episode Created Date Number of Fetuses Patient Bloodtype Patient rh Status Prepregnancy Weight lbs Domestic Partner Domestic Partner Phone Father Name Party Plan Selling Distributor Status 09/23/19 22 1 CLOSED Fetus Data First Name Last Name Admitted to NICU Weight (g) Sex Living Outcome Pediatric Complications Fetus ID Race Codes Race Delivery Type 3628.73 6 M [id number] Sumanth Calculation SUMANTH Calculation Method Initial Sumanth Date Initial Exam Date Initial Exam Provider Initial Ultrasound Date Last Menstrual Period Date Ultra Sound Weeks Gestation Conception by IVF Embryo Age at Transfer Date of Transfer 0 Eighteen To Twenty Week Sumanth Update Ultra Sound Date Fundal Height At Umbil Quickening Date Ultra Sound Latest Weeks Gestation Final Sumanth Confirmed By Final Sumanth Confirmed Date Final Sumanth Date Ultra Sound Latest Days Gestation 0 0 Menstrual History Last Menstrual Date Menses Monthly On Bcp Conception Prior Menses Frequency Hcg Plus Date Menarche Onset Age Delivery Information Delivery Date Delivery Type Labor Anesthesia Weeks Gestation Incision Type Labor Labor Length Hrs Delivered By Post Complications Tubal Sterilization Discharge Date Comments 0 263 false Discharge Information Feeding Method Contraceptive Method Maternal HG B and HCT Levels
== END 2024-06-30 07:50 | disposition home or self-care (01) ==
LOC: ANHED 07:35
PROVIDERS: Emergency Medicine; Emergency Provider Student in an Organized Health Care Education/Training Program
DX: R07.89 Other chest pain (principal)
CPT/HCPCS: 36415; 71045; 80053; 83690; 84484; 85025; 93005; 96374; 99284; A9270